=== PATIENT | male | born 1940 | race Caucasian/White ===

== ENCOUNTER 2020-03-27 06:54 | Outpatient (NON) | payer MEDICARE, SELFPAY ==
[2020-03-28 20:04] LABS: SARS-CoV-2 RNA PCR Positive
== END 2020-03-27 06:55 ==
LOC: ANHCOVIDDT 07:07
PROVIDERS: Visit Provider Family Medicine
DX: U07.1 COVID-19 (principal)
CPT/HCPCS: 87635; C9803; U0003

== ENCOUNTER 2021-10-31 10:06 | Inpatient (IN) | payer MEDICARE, SELFPAY ==
[2021-10-31] VITALS (19 sets, daily range): BP systolic 137–145; BP diastolic 59–90; PULSE 73–99; RESP 14–23; TEMP 36.3–37.2; O2SAT 93–98
--- NOTE | ~2021-10-31 | XR_ITS ---
EXAMINATION: XR chest 1V portable DATE: 11/03/2021 05:42 INDICATION: Atelectasis. Preoperative evaluation. Large bowel obstruction. TECHNIQUE: 1. Frontal view of the chest was obtained. 2. AP supine view of the abdomen was obtained for assessment of nasogastric tube positioning. COMPARISON: Chest radiograph dated 11/02/2021 FINDINGS: Chest: Persistent opacities at the lateral right lung base. Minimal streaky atelectasis in the left costophr enic angle. Remainder of lungs are clear. No pulmonary edema, pneumothorax or definitive pleural effu aftab. The cardiomediastinal silhouette is normal. Right upper extremity peripherally inserted central venous catheter (PICC) tip at the caudal superior vena cava. ABDOMEN: Nasogastric tube tip in proximal side port in the body of the stomach. Surgical clips in the left abd omen and multiple surgical clips in the pelvis consistent with prior left nephrectomy and cystectomy with pelvic lymph node dissections. There is an ostomy likely ileal conduit in the right lower quadra nt. Interval decrease in the prior gaseous distention of the ascending and transverse colon which on prior CT appears to result from obstruction at the level of an apple core lesions suspicious for prim ramon colon cancer. IMPRESSION: 1. Persistent bibasilar opacities, right greater than left, which could represent atelectasis or pneu monia. 2. Nasogastric tube in the stomach with decrease in the prior gaseous distention of the proximal colo n. Reviewed, dictated and finalized at location A. IMPRESSION: 1. Persistent bibasilar opacities, right greater than left, which could represe nt atelectasis or pneumonia. 2. Nasogastric tube in the stomach with decrease in the prior gaseous distentio n of the proximal colon.
--- NOTE | ~2021-10-31 | XR_ITS ---
EXAMINATION: XR abdomen/kub 1V DATE: 11/03/2021 05:41 INDICATION: Atelectasis. Preoperative evaluation. Large bowel obstruction. TECHNIQUE: 1. Frontal view of the chest was obtained. 2. AP supine view of the abdomen was obtained for assessment of nasogastric tube positioning. COMPARISON: Chest radiograph dated 11/02/2021 FINDINGS: Chest: Persistent opacities at the lateral right lung base. Minimal streaky atelectasis in the left costophr enic angle. Remainder of lungs are clear. No pulmonary edema, pneumothorax or definitive pleural effu aftab. The cardiomediastinal silhouette is normal. Right upper extremity peripherally inserted central venous catheter (PICC) tip at the caudal superior vena cava. ABDOMEN: Nasogastric tube tip in proximal side port in the body of the stomach. Surgical clips in the left abd omen and multiple surgical clips in the pelvis consistent with prior left nephrectomy and cystectomy with pelvic lymph node dissections. There is an ostomy likely ileal conduit in the right lower quadra nt. Interval decrease in the prior gaseous distention of the ascending and transverse colon which on prior CT appears to result from obstruction at the level of an apple core lesions suspicious for prim ramon colon cancer. IMPRESSION: 1. Persistent bibasilar opacities, right greater than left, which could represent atelectasis or pneu monia. 2. Nasogastric tube in the stomach with decrease in the prior gaseous distention of the proximal colo n. Reviewed, dictated and finalized at location A. IMPRESSION: 1. Persistent bibasilar opacities, right greater than left, which could represe nt atelectasis or pneumonia. 2. Nasogastric tube in the stomach with decrease in the prior gaseous distentio n of the proximal colon.
--- NOTE | ~2021-10-31 | XR_ITS ---
EXAMINATION: XR chest PICC line Exam Date/Time: 11/02/2021 15:30 CDT HISTORY: PICC placement Comparison: None available. RESULT: Lines, tubes, and devices: Right upper extremity PICC, terminating in the SVC. NG tube, terminating out of the [id number]. Lungs and pleura: Right costophrenic angle blunting. Cardiomediastinal silhouette: Unremarkable cardiomediastinal silhouette. Other: No acute osseous or upper abdominal finding. IMPRESSION: Right upper cavity PICC, in good position. Small right pleural effusion. Reviewed, dictated and finalized at location K.
--- NOTE | ~2021-10-31 | XR_ITS ---
EXAMINATION: XR abdomen/kub 1V DATE: 11/04/2021 05:50 INDICATION: Ileus versus small bowel obstruction TECHNIQUE: A supine view of the abdomen on 2 radiographs was obtained. COMPARISON: 11/03/2021 and 10/31/2021 FINDINGS: Nasogastric tube tip in proximal side port in the body of the stomach. Surgical clips in the abdomen and pelvis, more subtle midline sutures and right lower quadrant ostomy consistent with prior left ne phrectomy, cystectomy with pelvic lymph node dissection and right lower quadrant diverting ileal loop ostomy as seen on prior CT. Persistent mild gaseous distention of the cecum and transverse colon pro ximal to the site of a distal transverse colon apple core lesion seen on prior CT which is concerning for malignancy. No dilated loops of gas-filled small bowel. Mild streaky bibasilar atelectasis. Hear t size is normal. IMPRESSION: 1. Persistent mild gaseous distention of the proximal colon likely related to partial obstruction res ulting from apple core lesion seen on prior CT at the distal transverse colon which is suspicious for malignancy. Reviewed, dictated and finalized at location A. IMPRESSION: 1. Persistent mild gaseous distention of the proximal colon likely related to p artial obstruction resulting from apple core lesion seen on prior CT at the dis brenden transverse colon which is suspicious for malignancy.
--- NOTE | ~2021-10-31 | XR_ITS ---
XR abdomen obstructive series DATE: 11/01/2021 08:15 INDICATION: Transverse colon obstruction TECHNIQUE: Portable supine and upright AP views COMPARISON: 10/31/2021 portable upright AP examination 10/31/2021 CT abdomen pelvis FINDINGS: NG tube unchanged in position, distal tip in gastric fundus, the proximal side-port situate d at the diaphragmatic hiatus. Surgical clips overlie the left upper quadrant and left lower quadrant and bilateral pelvis. Radiopaq ue sutures overlie the midabdomen. There is gaseous distention of the transverse colon, terminating in the distal transverse colon area where an apple core lesion is identified on 10/31/2021 CT abdomen pelvis, consistent with obstructing distal transverse colon adenocarcinoma. There is nondilated gas distended containing small bowel segm ents. IMPRESSION: Distal transverse colon obstruction by constricting apple core adenocarcinoma NG tube in gastric fundus with proximal side port at the diaphragmatic hiatus; recommend advancement of the tube. Reviewed, dictated and finalized at Location A. Reviewed, dictated and finalized at location A. IMPRESSION: Distal transverse colon obstruction by constricting apple core matthias ocarcinoma NG tube in gastric fundus with proximal side port at the diaphragmatic hiatus; recommend advancement of the tube.
--- NOTE | ~2021-10-31 | XR_ITS ---
EXAMINATION: XR abdomen NG/feed tube insert DATE: 10/31/2021 14:11 INDICATION: Nasogastric tube placement TECHNIQUE: A supine view of the abdomen and lower chest was obtained for evaluation of feeding tube placement. COMPARISON: CT dated 10/31/2021 FINDINGS: Nasogastric tube tip in proximal side port in the body of the stomach. Excreted contrast is seen with in the right renal collecting system and mid right ureter. Status post left nephrectomy with surgical clips at the left side of the upper lumbar spine. Right paramediastinal anterior abdominal wall sutu res project the right side of the lumbar spine. Gaseous distention of the proximal colon consistent w ith colonic obstruction suspicious for malignancy at the distal transverse colon as described on prio r CT. Atelectasis/scarring at the right costophrenic angle. Cardiomediastinal silhouette is normal. IMPRESSION: 1. Nasogastric tube in stomach. Reviewed, dictated and finalized at location B.
--- NOTE | ~2021-10-31 | XR_ITS ---
XR abdomen obstructive series DATE: 11/02/2021 08:08 INDICATION: Transverse colon obstruction TECHNIQUE: Portable supine and upright AP views on 11/02/2021 at 0 754 and 0755 hours COMPARISON: 11/01/2021 KUB 10/31/2021 CT abdomen pelvis FINDINGS: There is persistent gaseous distention of the right colon proximal to the previously report ed constricting apple core lesion of the distal transverse colon, consistent with persistent obstruct ion. Surgical clips overlie the left upper quadrant, left lower quadrant and bilateral pelvis. The psoas shadows are intact. No visceromegaly is evident. There is an NG tube in proximal stomach. IMPRESSION: No significant change since 11/01/2021 Reviewed, dictated and finalized at Location A. Reviewed, dictated and finalized at location A.
--- NOTE | ~2021-10-31 | CT_ITS ---
EXAMINATION: CT abdomen pelvis w con DATE: 10/31/2021 11:50 INDICATION: Abdominal distention, vomiting TECHNIQUE: Computed tomography (CT) of the abdomen and pelvis was performed with 100 CC Omnipaque 300 intravenous contrast. Automated exposure control and iterative reconstruction technique were employe d. Exam dose: 329.73 mGy-cm total exam DLP. COMPARISON: None. FINDINGS: There is mild atelectasis and/or fibrotic change at the bases of the lower lobes. Normal heart size. No pericardial or pleural effusion. There is minimal perihepatic ascites and minimal fluid in the right paracolic gutter. There is small amount of free fluid in the dependent lower pelvis. There is very prominent fluid distention and air-fluid levels of the cecum, ascending and transverse colon due to a constricting apple core mass of the distal transverse colon. There is decompression of the colon distal to this point, with numerous diverticula of the distal descending and sigmoid colon . No CT evidence of diverticulitis. No hepatic space-occupying mass lesion. Normal splenic size. No pancreatic mass lesion, calcification or ductal dilatation. Mild cholelithiasis. No gallbladder wall thickening or pericholecystic fluid or fat stranding or bile duct dilatation is detected. Normal splenic size. No adrenal mass lesion. No pancreatic mass lesion, calcification or pancreatic duct dilatation. Status post left nephrectomy 8 mm right renal cyst. Indeterminate 5 mm cortical hypoattenuating lesion at the anterior mid right kidney and 4 mm hypoatte nuating lesion of the upper pole of the right kidney, too small to definitively characterize, most li hodan cysts. There is focal scarring along the lower lateral right kidney. 1.5 x 4 mm nonobstructing lower pole renal calculus. Right ileostomy, cystectomy. There is atherosclerotic calcification but normal caliber of the abdominal aorta and iliac arteries. No intraperitoneal or retroperitoneal or pelvic mass lesion or adenopathy or ascites is noted otherwi se. Diffuse idiopathic skeletal hyperostosis of the thoracic spine. Degenerative spurring of the lumbar s pine. No suspicious osteolytic or osteosclerotic lesions. IMPRESSION: Apple core constricting mass of the distal transverse colon consistent with adenocarcino ma, with proximal colon dilatation and fluid levels Status post left nephrectomy Right ileostomy Nonobstructing lower pole right renal calculus Right renal probable cysts Mild scarring, lateral right renal lower pole Cholelithiasis Diverticulosis of the left colon; no CT evidence of diverticulitis Reviewed, dictated and finalized at Location A. Reviewed, dictated and finalized at location A. IMPRESSION: Apple core constricting mass of the distal transverse colon consis tent with adenocarcinoma, with proximal colon dilatation and fluid levels Status post left nephrectomy Right ileostomy Nonobstructing lower pole right renal calculus Right renal probable cysts Mild scarring, lateral right renal lower pole Cholelithiasis Diverticulosis of the left colon; no CT evidence of diverticulitis
--- NOTE | 2021-10-31 10:44 | ED.ABDPAIN ---
HPI - Abdominal Pain General Chief Complaint: Abdominal Pain <VALENTINO Gay Last Filed: 10/31/21 19:36> Stated Complaint: bowel obstruction? <Syeda Staton PA-C - Last Filed: 10/31/21 19:36> Time Seen by Provider: 10/31/21 10:12 <VALENTINO Gay Last Filed: 10/31/21 19:36> Source: patient <VALENTINO Gay Last Filed: 10/31/21 19:36> Mode of arrival: ambulatory <VALENTINO Gay Last Filed: 10/31/21 19:36> Limitations: no limitations <VALENTINO Gay Last Filed: 10/31/21 19:36> History of Present Illness HPI narrative: Patient is a 81-year-old male who presents to the ED with report of abdominal pain and constipation. Patient reports he is typically very regular with his bowel movements, occurring twice a day. He has not had a bowel movement in the last 4 to 5 days however. He reports having diffuse pain across his abdomen that began on Wednesday and has been worsening. He then developed nausea and vomiting yesterday. He states he has been unable to keep down anything more than a few sips of water or nibbles of toast. He saw his primary care doctor today and was referred to the ED for further evaluation and to rule out bowel obstruction. He did try taking Dulcolax twice over the last few days, but denies passing any stool or gas. Reports chills, but denies fever. He has an ileal conduit with urostomy bag s/p radical cystectomy/L nephrectomy and denies any recent issues with this. No blood in vomit. <VALENTINO Gay Last Filed: 10/31/21 19:36> Related Data Home Medications: Home Medications Medication Instructions Recorded Confirmed aspirin 81 mg capsule 81 mg PO DAILY 10/31/21 10/31/21 multivitamin 1 tablet DAILY 10/31/21 10/31/21 <VALENTINO Gay Last Filed: 10/31/21 19:36> Allergies/Adverse Reactions: Allergies Allergy/AdvReac Type Severity Reaction Status Date / Time No Known Allergies Allergy Mild Verified 10/31/21 15:01 <Syeda Staton PA-C - Last Filed: 10/31/21 19:36> Review of Systems Review of Systems: CONSTITUTIONAL: Reports chills. Denies fever or sweats. CARDIOVASCULAR: Denies chest pain. RESPIRATORY: Denies dyspnea. GASTROINTESTINAL: Reports abdominal pain, nausea, vomiting, constipation. Denies rectal bleeding, hematemesis, diarrhea. GENITOURINARY: Denies dysuria or hematuria. MUSCULOSKELETAL: Denies back pain, joint pain, or myalgia. NEUROLOGIC: Denies headache, numbness, tingling, or weakness. <Syeda Staton PA-C - Last Filed: 10/31/21 19:36> All systems reviewed & are unremarkable except as noted in HPI and below <Syeda Staton PA-C - Last Filed: 10/31/21 19:36> [facility] Past Medical History Medical History: Medical History CKD (chronic kidney disease) stage 3, GFR 30-59 ml/min Gastro-esophageal reflux disease without esophagitis Mixed hyperlipidemia <VALENTINO Gay Last Filed: 10/31/21 19:36> Surgical History Surgical History: Surgical History History of nephrectomy History of total cystectomy History of urostomy <Syeda Staton PA-C - Last Filed: 10/31/21 19:36> Family History Family History: Family History Sibling Patient's sister is in good health, Onset Age: 72 Patient's brother is in good health, Onset Age: 63 Father Family history of Alzheimer's disease, Onset Age: 82 Patient's father is Mother Patient's mother is <Syeda Staton PA-C - Last Filed: 10/31/21 19:36> Social History Social History: Social History Smoking status: Former smoker Alcohol intake: current Drinks per week: 7 Substance use: never Substance use type: does not use Spiritual care concerns: No
[2021-10-31 11:07] LABS: Appearance Urine Cloudy (Clear); Bilirubin Urine Negative (Negative); Blood Urine 1+ (Negative); Color Urine Yellow (Yellow); Glucose Urine UA Negative (Negative); Ketones Urine Trace mg/dL (Negative); Leukocyte Esterase Ur 1+ LEU/UL (Negative); Nitrate Urine Positive (Negative); Protein Urine 2+ mg/dL (Negative); Urobilinogen Urine 0.2 mg/dL (<2.0)
[2021-10-31 11:13] LABS: Lactic Acid Reflex 1.3 mmol/L (0.7-2.0)
[2021-10-31] MEDS: SODIUM CHLORIDE 0.9% IV 1,000 ML 999 ML IV CONT (11:17)
[2021-10-31] MEDS: MORPHINE SULFATE (*CRX) 4 MG/ML INJ IV PUSH (11:18)
[2021-10-31] MEDS: ONDANSETRON INJ 4 MG/2 ML VIAL IV PUSH (11:18)
[2021-10-31 11:19] LABS: Basophils Percent Auto 0.4 % (0.2-1.2); Eosinophils Percent Auto 0.5 % (0-4.4); Hematocrit 43.5 % (42.0-52.0); Immature Granulocyte Absolute 0.03 K/mm3 (0.00-0.031); Immature Granulocyte Percent A 0.4 % (0-0.5); Mean Corpuscular HGB Conc 32.2 g/dl (32-36); Mean Corpuscular Hemoglobin 28.6 pg (26-34); Mean Corpuscular Volume 88.8 fl (80-100); Mean Platelet Volume 8.2 fl (7.4-10.4); Monocytes Absolute Auto 0.7 K/mm3 (0.1-0.6); Monocytes Percent Auto 8.7 % (2.6-8.5); Neutrophils Absolute Auto 6.5 K/mm3 (1.3-6.7); Platelet Count Result 249 k/mm3 (150-375); Red Cell Distribution Width 14.3 % (11.5-14.5); White Blood Count 8.3 K/mm3 (4.5-10.0)
[2021-10-31 11:29] LABS: Alanine Aminotransferase 17 U/L (6-50); Albumin Level 4.2 g/dL (3.5-5.1); Alkaline Phosphatase 91 U/L (38-126); Anion Gap 6 mmol/L (8-16); Aspartate Amino Transferase 21 U/L (17-59); Bilirubin,Total 0.3 mg/dL (0.2-1.3); Blood Urea Nitrogen 18 mg/dL (9-20); Calcium 8.8 mg/dL (8.4-10.2); Carbon Dioxide 26 mmol/L (22-30); Chloride 108 mmol/L (98-107); Estimated CRCL calculation 36 ml/min; Estimated Glomerular Filt Rate 49; Glucose 111 mg/dL (65-110); Lipase 152 U/L (23-300); Potassium 3.7 mmol/L (3.4-5.0); Sodium 140 mmol/L (137-145)
[2021-10-31 11:36] LABS: Bacteria Urine Trace /hpf; Mucus Urine Rare /lpf; WBC Clumps Urine Present /HPF; WBC Urine 31-50 /hpf
--- NOTE | 2021-10-31 11:36 | PC.NURSE ---
Patient reports only one kidney. 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 GFR is WNL.
[2021-10-31 11:43] LABS: Add Urine Microscopic? YES
--- NOTE | 2021-10-31 13:34 | PM.IMHP ---
H&P: HPI History of Present Illness Date/Time: 10/31/21 13:12 Chief Complaint: Abdominal Pain, sent from PCP's office. Narrative: This very pleasant 81-year-old male patient significant past medical history of renal and bladder cancer status post ileal conduit urostomy placement in 2002, chronic kidney disease stage 3, hyperlipidemia, GERD, presents to the emergency room this morning with complaints of having his primary care provider sending him over for rule out bowel obstruction. Patient endorses that he normally has regular bowel movements twice daily and he has not had any for the last 4-[address] 30 cues. On Wednesday now 4 days ago, the patient began having some lower abdominal pain and he reports that it has gradually been worsening. Yesterday he started having nausea and vomiting and has been unable to keep anything down except a few bites of dry toast. He saw his primary care physician today regarding the symptoms and there was concern for obstruction so he was subsequently sent here to rule out. In the emergency room workup was performed and vital signs are noted to be stable, CBC is unremarkable, creatinine level is mildly elevated at 1.4 with a GFR 49 but is consistent with patient's history of chronic kidney disease stage 3 in his urine appears cloudy with 2+ protein, 1+ blood, positive nitrates, 1+ leukocyte esterase with 31-[address] of the abdomen and pelvis was performed demonstrating apple-core constricting mass of the distal transverse colon consistent with adenocarcinoma with proximal colon dilation and fluid levels. There are other nonacute findings present on CT such as right ileostomy with status post left nephrectomy, nonobstructing lower pole right renal calculus, right renal probable cyst, mild scarring of the lateral right renal lower pole, cholelithiasis and diverticulosis of the left colon without diverticulitis. Patient does wish to be treated here at this facility and general surgery was contacted by the ER provider, and Dr. Donovan gave order for NG tube to be placed and he will evaluate patient. Patient is being admitted to hospitalist service at this time for further ongoing management of chronic medical conditions and treatment of current urinary tract infection with co-management of general surgery for this new finding of colon mass. At the time of my exam of this patient he is lying supine on the stretcher with no acute distress noted. He denies any chest pain and/or dyspnea. He does complain of some abdominal pain on the left side of his lower abdomen and he is mildly nauseated. He denies any urinary complaints such as burning urgency frequency or hematuria as he does have a right-sided urostomy that is draining clear yellow urine at this time. Review of Systems Review of Systems: All systems reviewed & are unremarkable except as noted in HPI and below PMFSH Past Medical History Medical History CKD (chronic kidney disease) stage 3, GFR 30-59 ml/min Gastro-esophageal reflux disease without esophagitis Mixed hyperlipidemia Surgical History Surgical History History of nephrectomy History of total cystectomy History of urostomy Family History Family History Sibling Patient's sister is in good health, Onset Age: 72 Patient's brother is in good health, Onset Age: 63 Father Family history of Alzheimer's disease, Onset Age: 82 Patient's father is Mother Patient's mother is Social History Social History Smoking status: Former smoker Alcohol intake: current Meds Home Medications and Allergies Home Medications Medication Instructions Recorded Confirmed Type aspirin 81 mg capsule 81
--- NOTE | 2021-10-31 15:08 | ADMGEN ---
This patient, Montrell Castro, was admitted to Medical Room 243-01. Patient/family oriented to hospital policies and general routines including ID bracelet, bed and alarms, visiting hours, pain management, procedures, bathroom and other care routines, personal items, smoking policy, room service/diet, and visiting hours. Information on how to activate the Rapid Response Team has been discussed. Patient/Family are encouraged to report perceived risks to care and to ask questions if they do not understand what they are told or what they should do. Report received from MURPHY Gaspar
[2021-10-31] MEDS: SODIUM CHLORIDE 0.9% IV 1,000 ML 100 ML IV CONT (16:34)
[2021-10-31] MEDS: PANTOPRAZOLE SODIUM IV 40 MG VIAL IV PUSH (16:34)
[2021-10-31] MEDS: HYDROmorphone HCL INJ (*CRX) 1 MG/ML SYR 0.5 MG IV PUSH (16:42)
--- NOTE | 2021-10-31 22:30 | PM.CNGS ---
Assessment and Plan Assessment and plan (1) Mass of colon: Code(s): K63.89 - Other specified diseases of intestine Status: Acute Assessment and Plan: I have personally reviewed the images of his CT scan. I have discussed the situation with him. Ideally if possible patient would have a colonoscopy with a unprepped bowel other than prepping with suppository, fleets enema and soapsuds enemas. If the area of narrowing can be reached biopsies could be taken and perhaps a stent placed across the narrow area. This would then allow a bowel prep later prior to surgical intervention for resection. However, I do not believe we have these capabilities here. Therefore, after discussing with Dr. Alford tomorrow most likely will recommend patient be transferred to a tertiary care center that has the capabilities and a colorectal surgeon who would be comfortable operating in his complex abdomen. Patient states that he has lived here in [facility] some time and prefers not to go back to [facility] for that transfer. [place] be [place] to [place] that is needed. Thank you for asking me to consult on this pleasant patient. (2) History of renal cell cancer: Code(s): Z85.528 - Personal history of other malignant neoplasm of kidney Status: Acute Assessment and Plan: The patient is not sure what type of kidney cancer he had in the left kidney but he did have a radical nephrectomy at [facility] in [facility] in 2000. (3) Obstruction of transverse colon: Code(s): K56.609 - Unspecified intestinal obstruction, unspecified as to partial versus complete obstruction Status: Acute Assessment and Plan: Was likely secondary to tumor. The patient states he did have a colonoscopy about 15 years ago in [place] remembers that the endoscopist apparently took got about 8 polyps but he apparently was not worn to follow-up with a other colonoscopy in 5 years and has not had another colonoscopy since that time. In view of the current obstruction would place an NG tube to prevent further swallowing of air in distension of the cecum. Will repeat abdominal films in the morning to be sure that there was not signs of pending perforation of the cecum. This would require possible laparotomy and more urgent surgery. (4) History of urostomy: Code(s): Z98.890 - Other specified postprocedural states Status: Acute Assessment and Plan: created in 2002 due to need for cystectomy for bladder cancer. (5) History of total cystectomy: Code(s): Z90.6 - Acquired absence of other parts of urinary tract Status: Acute Assessment and Plan: As above (6) History of nephrectomy: Code(s): Z90.5 - Acquired absence of kidney Status: Acute Assessment and Plan: history of radical left nephrectomy from unknown cancer in [facility] [place] 2000. (7) Mixed hyperlipidemia: Code(s): E78.2 - Mixed hyperlipidemia Status: Acute (8) Gastro-esophageal reflux disease without esophagitis: Code(s): K21.9 - Gastro-esophageal reflux disease without esophagitis Status: Acute Assessment and Plan: Agree with use of IV Protonix (9) CKD (chronic kidney disease) stage 3, GFR 30-59 ml/min: Code(s): N18.30 - Chronic kidney disease, stage 3 unspecified Status: Acute Assessment and Plan: agree with IV fluids May consider consider starting peripheral nutrition tomorrow since the patient will be unable to eat for some time. He may benefit from placement of a PICC line if it can be done on the weekend. Additional Plan History of Present Illness Consult details Consult date: 10/31/21 Reason for consult: other (Possible transverse colon obstruction) Requesting physician: Isabel Haskins APN-C Narrative: This a pleasant 81-year-old White m
[2021-11-01] MEDS: SODIUM CHLORIDE 0.9% IV 1,000 ML 100 ML IV CONT ×3 (01:40→23:18)
[2021-11-01] MEDS: HYDROmorphone HCL INJ (*CRX) 1 MG/ML SYR 0.5 MG IV PUSH ×4 (01:44→17:45)
[2021-11-01 05:17] LABS: Basophils Absolute Auto 0.1 K/mm3 (0.0-0.1); Basophils Percent Auto 0.7 % (0.2-1.2); Eosinophils Absolute Auto 0.1 K/mm3 (0-0.3); Eosinophils Percent Auto 1.9 % (0-4.4); Hematocrit 36.7 % (42.0-52.0); Hemoglobin 11.4 g/dL (14.0-18.0); Immature Granulocyte Absolute 0.02 K/mm3 (0.00-0.031); Immature Granulocyte Percent A 0.3 % (0-0.5); Lymphocytes Absolute Auto 1.13 K/mm3 (0.9-3.2); Lymphocytes Percent Auto 16.8 % (18.3-44.2); Mean Corpuscular HGB Conc 31.1 g/dl (32-36); Mean Corpuscular Hemoglobin 28.4 pg (26-34); Mean Corpuscular Volume 91.5 fl (80-100); Mean Platelet Volume 8.8 fl (7.4-10.4); Monocytes Absolute Auto 0.7 K/mm3 (0.1-0.6); Monocytes Percent Auto 9.7 % (2.6-8.5); Neutrophils Absolute Auto 4.7 K/mm3 (1.3-6.7); Neutrophils Percent Auto 70.6 % (45.5-73.1); Platelet Count Result 214 k/mm3 (150-375); Red Blood Count 4.01 M/mm3 (4.6-6.20); Red Cell Distribution Width 14.4 % (11.5-14.5); White Blood Count 6.7 K/mm3 (4.5-10.0)
[2021-11-01 05:39] LABS: Anion Gap 6 mmol/L (8-16); Blood Urea Nitrogen 15 mg/dL (9-20); Calcium 7.8 mg/dL (8.4-10.2); Carbon Dioxide 24 mmol/L (22-30); Chloride 112 mmol/L (98-107); Estimated CRCL calculation 42 ml/min; Estimated Glomerular Filt Rate 58; Glucose 80 mg/dL (65-110); Magnesium 2.1 mg/dL (1.6-2.3); Potassium 3.3 mmol/L (3.4-5.0); Sodium 142 mmol/L (137-145)
[2021-11-01 06:13] VITALS: BP 140/64; PULSE 85; RESP 18; TEMP 36.7; O2SAT 97
[2021-11-01 06:14] VITALS: BMI 24.1
--- NOTE | 2021-11-01 07:37 | PM.IMPN ---
Progress Note: A&P Assessment and Plan (1) Obstruction of transverse colon: Code(s): K56.609 - Unspecified intestinal obstruction, unspecified as to partial versus complete obstruction Status: Acute Assessment and Plan: - Bowel obstruction present as demonstrated per CT scan of the abdomen and pelvis, secondary to mass identified and transverse colon. - Concern for adenocarcinoma given patient's previous history of renal cancer. - patient never underwent chemotherapy and/or radiation for previous cancer. Instead he opted for radical cystectomy and nephrectomy with ileal conduit and urostomy placement. - General surgery, Dr. Donovan is consulted. Appreciate his co-management and recommendations with this patient. - NG tube placed as per instructions of Dr. Donovan. - P.r.n. antiemetics and pain medication are available IV push for patient as needed. - NPO status 11/01: Plan is to transfer to higher level of care for possible bowel stenting (2) Mass of colon: Code(s): K63.89 - Other specified diseases of intestine Status: Acute Assessment and Plan: - See plan above, concern for adenocarcinoma. It is causing acute obstruction, General surgery to assist with management patient. (3) Urinary tract infection: Qualifiers: Hematuria presence: with hematuria Urinary tract infection type: acute cystitis Qualified Code(s): N30.01 - Acute cystitis with hematuria Code(s): N39.0 - Urinary tract infection, site not specified Status: Acute Assessment and Plan: - Follow urine culture to completion. - Patient received Rocephin in the emergency room and we will continue that daily on the floor pending urine culture. - Follow labs and vital signs. (4) CKD (chronic kidney disease) stage 3, GFR 30-59 ml/min: Code(s): N18.30 - Chronic kidney disease, stage 3 unspecified Status: Acute Assessment and Plan: - Baseline chronic kidney disease stage 3. No comparison renal function data present in our EMR. - Gentle hydration as patient will be NPO. Continue normal saline at 100 mL/hour. (5) Gastro-esophageal reflux disease without esophagitis: Code(s): K21.9 - Gastro-esophageal reflux disease without esophagitis Status: Acute Assessment and Plan: - PPI therapy with Protonix 40 mg IV push b.i.d. is ordered. (6) Mixed hyperlipidemia: Code(s): E78.2 - Mixed hyperlipidemia Status: Acute Assessment and Plan: - Hold current medications secondary to NPO status. (7) History of renal cell cancer: Code(s): Z85.528 - Personal history of other malignant neoplasm of kidney Status: Acute Assessment and Plan: - from 2002, left kidney and bladder cancer status post radical nephrectomy and cystectomy. He has an ileal conduit and urostomy placement in the right lower quadrant. Subjective Date/time seen: 11/01/21 07:37 Interval history: Patient resting comfortably. Does admit to still feeling distended. No bowel movements, not passing gas. No fevers or chills. No abdominal pain. No nausea or emesis and NG tube placement. Review of Systems Review of Systems: 12 point review of systems was assessed and was negative except as noted in the HPI All systems reviewed & are unremarkable except as noted in HPI and below Exam Narrative: General: No acute distress, alert and oriented per baseline, NG tube in place HEENT: Atraumatic, normocephalic, mucous membranes moist CV: Regular rate and rhythm, S1, S2 Lungs: Clear to auscultation bilaterally, no rales or crackles noted, no wheezes, good air entry Abdomen: Distended, tympanic bowel sounds throughout, tenderness to palpation noted especially in the epigastric area Extremities: Normal to inspection Skin: No rashes noted, no lesions or wounds seen Psych: Euthymic, normal affect Objective Data Vital Signs Vital Signs: Vital Signs -
--- NOTE | 2021-11-01 08:08 | WPDGICN ---
Assessment and Plan Assessment and plan (1) Obstruction of transverse colon: Code(s): K56.609 - Unspecified intestinal obstruction, unspecified as to partial versus complete obstruction Status: Acute Assessment and Plan: Patient has clinical bowel obstruction he is in ileus with absent bowel sounds tense distended tympanic. I have been asked to consider colonoscopy but this patient will be unable to be prepped. He appears to have an ileus which is a contraindication as well. I do not personally do bowel stenting. I would recommend surgical decompression or transferred tertiary care center if surgeons feel appropriate. (2) Mass of colon: Code(s): K63.89 - Other specified diseases of intestine Status: Acute Assessment and Plan: Mass of colon on CT scanning most suspicious for colon carcinoma. Less likely would be adhesions from previous surgery or extension of previous renal cell carcinoma. This likely will be further defined at time of definitive surgery. (3) History of renal cell cancer: Code(s): Z85.528 - Personal history of other malignant neoplasm of kidney Status: Acute (4) History of urostomy: Code(s): Z98.890 - Other specified postprocedural states Status: Acute (5) Urinary tract infection: Qualifiers: Hematuria presence: with hematuria Urinary tract infection type: acute cystitis Qualified Code(s): N30.01 - Acute cystitis with hematuria Code(s): N39.0 - Urinary tract infection, site not specified Status: Acute GI Consult Note Consult date/time: 11/01/21 08:08 Reason for consult: Bowel obstruction HPI: Montrell Castro is a 81 year old male I am asked to see because of bowel obstruction. Patient reports he began to get abdominal pain cramping on Wednesday fiber 6 days prior to this. It intensified prompting him to present to the hospital last evening and was subsequently admitted. A CT scan reveals a mass in the transverse colon. In apparent bowel obstruction. Patient's past history is significant for nephrectomy for renal cell carcinoma 15 years ago. He has a diverting nephrostomy on the right side. Patient complains of diffuse abdominal pain and NG tube was placed last night. Review of Systems Review of Systems: Review of systems noncontributory. [facility] Past Medical History Medical History CKD (chronic kidney disease) stage 3, GFR 30-59 ml/min Gastro-esophageal reflux disease without esophagitis Mixed hyperlipidemia Surgical History Surgical History History of nephrectomy History of total cystectomy History of urostomy Family History Family History Sibling Patient's sister is in good health, Onset Age: 72 Patient's brother is in good health, Onset Age: 63 Father Family history of Alzheimer's disease, Onset Age: 82 Patient's father is Mother Patient's mother is Social History Social History Smoking status: Former smoker Alcohol intake: current Drinks per week: 7 Substance use: never Substance use type: does not use Spiritual care concerns: No Meds Home Medications and Allergies Home Medications Medication Instructions Recorded Confirmed Type aspirin 81 mg capsule 81 mg PO DAILY 10/31/21 10/31/21 History multivitamin 1 tablet DAILY 10/31/21 10/31/21 History Allergies Allergy/AdvReac Type Severity Reaction Status Date / Time No Known Allergies Allergy Mild Verified 10/31/21 15:01 Vital Signs Vital Signs - 24 hr 10/31/21 10:08 10/31/21 10:57 10/31/21 11:01 Temperature 97.3 F L Pulse Rate 73 95 95 Respiratory Rate 14 16 19 Blood Pressure 143/65 H 143/81 H Pulse Oximetry 98 97 95 Oxygen Delivery Ro
[2021-11-01] MEDS: PANTOPRAZOLE SODIUM IV 40 MG VIAL IV PUSH ×2 (08:19→17:45)
--- NOTE | 2021-11-01 10:06 | PM.PNGS ---
Progress Note: A&P Assessment and Plan (1) Mass of colon: Code(s): K63.89 - Other specified diseases of intestine Status: Acute Assessment and Plan: I have personally reviewed the images of his CT scan.? I have discussed the situation with him.? Ideally if possible patient would have a colonoscopy with a unprepped bowel other than prepping with suppository, fleets enema and soapsuds enemas.? If the area of narrowing can be reached biopsies could be taken and perhaps a stent placed across the narrow area.? This would then allow a bowel prep later prior to surgical intervention for resection.? However, I do not believe we have these capabilities here.? Therefore, after discussing with Dr. Smyth today we recommend patient be transferred to a tertiary care center that has these capabilities and a colorectal surgeon who would be comfortable operating in his complex abdomen. ? ? Patient states that he has lived here in [place], [place] some time and prefers not to go back to [facility] for that transfer.? May be willing to transfer across the [place] to [place] if that is needed. Thank you for asking me to consult on this pleasant patient. (2) History of renal cell cancer: (2) Obstruction of transverse colon: Code(s): K56.609 - Unspecified intestinal obstruction, unspecified as to partial versus complete obstruction Status: Acute Assessment and Plan: This could be inflammatory but more likely is a neoplasm in nature. If it could be stented we may save the patient an ostomy. Will start cleansing the lower bowel with the suppository and or Fleets today. (3) History of renal cell cancer: Code(s): Z85.528 - Personal history of other malignant neoplasm of kidney Status: Acute Subjective Subjective Date/Time Seen: 11/01/21 09:06 Patient reports: no new complaints, still having pain ( Less than when presented to the ED, but took recent pain medicine), pain is less and other ( denies noticing flatus. No bowel movement.) Review of Systems Review of Systems: All systems reviewed & are unremarkable except as noted in HPI and below Constitutional: Constitutional: Reports as per HPI, Denies chills and Denies fever(s) Cardiovascular: Cardiovascular: Denies chest pain and Denies dyspnea Respiratory: Respiratory: Reports no additional respiratory complaints and Denies dyspnea Gastrointestinal: Gastrointestinal: Reports as per HPI and Denies bloating Musculoskeletal: Musculoskeletal: Reports no additional musculoskeletal complaints Neurologic: Denies memory loss Psychiatric: Psychiatric: Denies anxiety and Denies memory loss Exam Const: General: cooperative, comfortable, alert and awake Orientation/consciousness: patient oriented x3 HENMT: Head: normal to inspection Mouth: Yes moist mucous membranes Eyes: Sclera: sclerae normal Pupils: Equal, round and reactive pupils present Neck: Neck: normal visual inspection and no JVD Chest: Chest palpation & inspection: normal inspection of the chest Resp: Effort & Inspection: normal respiratory effort Auscultation: clear to auscultation bilaterally Cardio: Jugular venous distension: no JVD Rate: regular rate GI: Inspection: distended and scar ( Described yesterday on consult no in line and remaining right) GI Palp: Yes Soft to palpation ( lower abdomen), Yes Firmness to palpation present (GI) ( upper abdomen no peritoneal signs), No Guarding due to palpation present (GI) and No Hernia present Other: ostomy pink in the right lower quadrant not much room for an ostomy between it and the ribcage superiorly on the right Neuro: General: patient oriented x3 Cranial nerves: Yes Equal, round and reactive pupils present Objective Data Vital Signs Vital Signs: Vital Signs - 24 hr 10/31/21 10:08 10/31/21 10:57 10/31/21 11:01 Temperature 36.3 C L Pulse Rate 73 95 95 Respiratory Rate 14 16 19 Blood Pressure 143/65 H 143/8
--- NOTE | 2021-11-01 11:25 | PM.IMPN ---
Progress Note: A&P Assessment and Plan (1) Obstruction of transverse colon: Code(s): K56.609 - Unspecified intestinal obstruction, unspecified as to partial versus complete obstruction Status: Acute Assessment and Plan: - Bowel obstruction present as demonstrated per CT scan of the abdomen and pelvis, secondary to mass identified and transverse colon. - Concern for adenocarcinoma given patient's previous history of renal cancer. - patient never underwent chemotherapy and/or radiation for previous cancer. Instead he opted for radical cystectomy and nephrectomy with ileal conduit and urostomy placement. - General surgery, Dr. Donovan is consulted. Appreciate his co-management and recommendations with this patient. - NG tube placed as per instructions of Dr. Donovan. - P.r.n. antiemetics and pain medication are available IV push for patient as needed. - NPO status 11/01: Plan is to transfer to higher level of care for possible bowel stenting, accepted at [facility] by the surgeon Dr. Barreto, currently on a waiting list for a bed (2) Mass of colon: Code(s): K63.89 - Other specified diseases of intestine Status: Acute Assessment and Plan: - See plan above, concern for adenocarcinoma. It is causing acute obstruction, General surgery to assist with management patient. (3) Urinary tract infection: Qualifiers: Hematuria presence: with hematuria Urinary tract infection type: acute cystitis Qualified Code(s): N30.01 - Acute cystitis with hematuria Code(s): N39.0 - Urinary tract infection, site not specified Status: Acute Assessment and Plan: - Follow urine culture to completion. - Patient received Rocephin in the emergency room and we will continue that daily on the floor pending urine culture. - Follow labs and vital signs. (4) CKD (chronic kidney disease) stage 3, GFR 30-59 ml/min: Code(s): N18.30 - Chronic kidney disease, stage 3 unspecified Status: Acute Assessment and Plan: - Baseline chronic kidney disease stage 3. No comparison renal function data present in our EMR. - Gentle hydration as patient will be NPO. Continue normal saline at 100 mL/hour. (5) Gastro-esophageal reflux disease without esophagitis: Code(s): K21.9 - Gastro-esophageal reflux disease without esophagitis Status: Acute Assessment and Plan: - PPI therapy with Protonix 40 mg IV push b.i.d. is ordered. (6) Mixed hyperlipidemia: Code(s): E78.2 - Mixed hyperlipidemia Status: Acute Assessment and Plan: - Hold current medications secondary to NPO status. (7) History of renal cell cancer: Code(s): Z85.528 - Personal history of other malignant neoplasm of kidney Status: Acute Assessment and Plan: - from 2002, left kidney and bladder cancer status post radical nephrectomy and cystectomy. He has an ileal conduit and urostomy placement in the right lower quadrant. Subjective Date/time seen: 11/01/21 11:25 Interval history: Continued tenderness in his abdomen. No bowel movement or passing gas. Overnight events noted. No chest pain or shortness of breath. No nausea, vomiting or diarrhea. No fevers or chills. Review of Systems Review of Systems: All systems reviewed & are unremarkable except as noted in HPI and below Exam Narrative: General: No acute distress, alert and oriented per baseline, NG tube in place HEENT: Atraumatic, normocephalic, mucous membranes moist CV: Regular rate and rhythm, S1, S2 Lungs: Clear to auscultation bilaterally, no rales or crackles noted, no wheezes, good air entry Abdomen: Distended, tympanic bowel sounds throughout, tenderness to palpation noted especially in the epigastric area Extremities: Normal to inspection Skin: No rashes noted, no lesions or wounds seen Psych: Euthymic, normal affect Objective Data Vital Signs Vital Signs:
[2021-11-01] MEDS: BISACODYL 10 MG SUPPOSITORY RECTAL ×2 (11:45→17:45)
[2021-11-01 15:38] VITALS: BP 155/68; PULSE 91; RESP 16; TEMP 36.8; O2SAT 98
[2021-11-01 21:09] VITALS: BP 101/87; PULSE 94; RESP 18; TEMP 36.3; O2SAT 96
[2021-11-02 05:15] LABS: Basophils Percent Auto 0.5 % (0.2-1.2); Eosinophils Absolute Auto 0.1 K/mm3 (0-0.3); Eosinophils Percent Auto 1.9 % (0-4.4); Hematocrit 35.2 % (42.0-52.0); Immature Granulocyte Absolute 0.01 K/mm3 (0.00-0.031); Immature Granulocyte Percent A 0.2 % (0-0.5); Lymphocytes Absolute Auto 0.69 K/mm3 (0.9-3.2); Lymphocytes Percent Auto 11.9 % (18.3-44.2); Mean Corpuscular HGB Conc 31.3 g/dl (32-36); Mean Corpuscular Hemoglobin 28.4 pg (26-34); Mean Platelet Volume 8.6 fl (7.4-10.4); Monocytes Absolute Auto 0.6 K/mm3 (0.1-0.6); Monocytes Percent Auto 10.2 % (2.6-8.5); Neutrophils Absolute Auto 4.4 K/mm3 (1.3-6.7); Neutrophils Percent Auto 75.3 % (45.5-73.1); Platelet Count Result 180 k/mm3 (150-375); Red Blood Count 3.87 M/mm3 (4.6-6.20); Red Cell Distribution Width 14.4 % (11.5-14.5); White Blood Count 5.8 K/mm3 (4.5-10.0)
[2021-11-02 05:23] LABS: Anion Gap 7 mmol/L (8-16); Blood Urea Nitrogen 14 mg/dL (9-20); Calcium 7.8 mg/dL (8.4-10.2); Carbon Dioxide 21 mmol/L (22-30); Chloride 115 mmol/L (98-107); Estimated CRCL calculation 45 ml/min; Estimated Glomerular Filt Rate > 60; Glucose 81 mg/dL (65-110); Potassium 3.3 mmol/L (3.4-5.0); Sodium 143 mmol/L (137-145)
[2021-11-02 05:43] LABS: Prealbumin 13.5 mg/dL (17.6-36.0)
[2021-11-02 06:00] VITALS: BP 146/73; PULSE 92; RESP 20; TEMP 36.4; O2SAT 99
--- NOTE | 2021-11-02 07:40 | PM.IMPN ---
Progress Note: A&P Assessment and Plan (1) Obstruction of transverse colon: Code(s): K56.609 - Unspecified intestinal obstruction, unspecified as to partial versus complete obstruction Status: Acute Assessment and Plan: Bowel obstruction present as demonstrated per CT scan of the abdomen and pelvis, secondary to mass identified and transverse colon. Concern for adenocarcinoma given patient's previous history of renal cancer. Patient never underwent chemotherapy and/or radiation for previous cancer. Instead he opted for radical cystectomy and nephrectomy with ileal conduit and urostomy placement. General surgery, Dr. Donovan is consulted. Appreciate his co-management and recommendations with this patient. NG tube placed as per instructions of Dr. Donovan. P.r.n. antiemetics and pain medication are available IV push for patient as needed. NPO status 11/01: Plan is to transfer to higher level of care for possible bowel stenting, accepted at [facility] by the surgeon Dr. Barreto, currently on a waiting list for a bed 11/02: Pending transfer, otherwise no change (2) Mass of colon: Code(s): K63.89 - Other specified diseases of intestine Status: Acute Assessment and Plan: See plan above, concern for adenocarcinoma. It is causing acute obstruction, General surgery to assist with management patient. (3) Urinary tract infection: Qualifiers: Hematuria presence: with hematuria Urinary tract infection type: acute cystitis Qualified Code(s): N30.01 - Acute cystitis with hematuria Code(s): N39.0 - Urinary tract infection, site not specified Status: Acute Assessment and Plan: Abnormal urinalysis from urostomy, urine culture growing Gram-negative bacilli, final results pending, no previous cultures available, continue Rocephin 1 g daily, started on October 31, 2021, end date November 06, 202111/02: Urine culture grew Enterobacter, Klebsiella aerogenes, sensitive to ceftriaxone, continue current management (4) CKD (chronic kidney disease) stage 3, GFR 30-59 ml/min: Code(s): N18.30 - Chronic kidney disease, stage 3 unspecified Status: Acute Assessment and Plan: Baseline chronic kidney disease stage 3. No comparison renal function data present in our EMR. Gentle hydration as patient will be NPO. Continue normal saline at 100 mL/hour. (5) Gastro-esophageal reflux disease without esophagitis: Code(s): K21.9 - Gastro-esophageal reflux disease without esophagitis Status: Acute Assessment and Plan: PPI therapy with Protonix 40 mg IV push b.i.d. is ordered. (6) Mixed hyperlipidemia: Code(s): E78.2 - Mixed hyperlipidemia Status: Acute Assessment and Plan: Hold current medications secondary to NPO status. (7) History of renal cell cancer: Code(s): Z85.528 - Personal history of other malignant neoplasm of kidney Status: Acute Assessment and Plan: From 2002, left kidney and bladder cancer status post radical nephrectomy and cystectomy. He has an ileal conduit and urostomy placement in the right lower quadrant. (8) Hypokalemia: Code(s): E87.6 - Hypokalemia Status: Acute Assessment and Plan: 11/02: Potassium is 3.3 today, will give 40 mEq IVPB with lidocaine x1, recheck tomorrow Plan Plan for PICC line ad TPN per surgery team, spoke with Dr Barreto, accepting acute care surgeon at [facility], bed still pending. Subjective Date/time seen: 11/02/21 07:40 Interval history: Patient is somewhat restless, wandering the room. No overnight events noted. No chest pain or shortness of breath. No nausea, vomiting or diarrhea. No fevers or chills. It seems like his belly pain might be somewhat improved from yesterday. He is having small bowel movements. States he did pass some flatus. Review of Systems Review of Systems: 12 point review of systems was assessed and was negative except as noted in
--- NOTE | 2021-11-02 08:42 | WPDGIPROGNO ---
Progress Note: A&P Assessment and Plan (1) Obstruction of transverse colon: Code(s): K56.609 - Unspecified intestinal obstruction, unspecified as to partial versus complete obstruction Status: Acute Assessment and Plan: Patient with large bowel obstruction. CT scan imaging suggest mass in the transverse colon. Today bowel sounds are heard. Patient's white count remains normal. He has modest discomfort throughout his abdomen. Colonic stenting not available at our institution. Would recommend decompression. Surgery feels this would best be done at a tertiary care center. transfer is in progress. (2) Mass of colon: Code(s): K63.89 - Other specified diseases of intestine Status: Acute (3) History of renal cell cancer: Code(s): Z85.528 - Personal history of other malignant neoplasm of kidney Status: Acute Assessment and Plan: Patient has a ileal ostomy tube in place. history nephrectomy. Subjective Date/time seen: 11/02/21 08:42 patient seen today in follow-up. Alert tolerating NG tube at bedside. May passed a small amount of flatus. Review of Systems Review of Systems: Review of systems noncontributory. Exam Narrative: Physical exam reveals patient be alert. Vital signs stable. HEENT exam is unremarkable patient anicteric. Lungs are clear. Heart without murmur. Abdomen is protuberant. Bowel sounds are present and heard today. Abdomen is tympanic diffusely. Objective Data Vital Signs Vital Signs: Vital Signs - 24 hr 11/01/21 15:38 11/01/21 21:09 11/02/21 06:00 Temperature 98.2 F 97.3 F L 97.6 F Pulse Rate 91 94 92 Respiratory Rate 16 18 20 Blood Pressure 155/68 H 101/87 146/73 H Pulse Oximetry 98 96 99 Intake/Output Intake/Output: Intake & Output 10/30/21 10/31/21 11/01/21 11/02/21 23:59 23:59 23:59 23:59 Intake Total 1050 3000 Output Total 450 1410 850 Balance 600 1590 -850 Meds/Results Medications: Active Medications Generic Name Dose Route Start Last Admin Trade Name Freq PRN Reason Stop Dose Admin Hydromorphone HCl 0.5 mg 10/31/21 13:54 11/01/21 17:45 Hydromorphone Hcl Inj (*Crx) 1 Mg/Ml Syr IV PUSH 0.5 mg Q4HR PRN Administration pain Sodium Chloride 1,000 mls @ 100 mls/hr 10/31/21 13:55 11/01/21 23:18 Normal Saline Iv IV CONT 100 mls/hr .Q10H FAISAL Administration Ceftriaxone Sodium/Dextrose 1 gm in 50 mls @ 100 mls/hr 11/02/21 18:00 Rocephin 1 Gm/D5w 50 Ml IVPB Q24H FAISAL Potassium Chloride 40 meq/ 520 mls @ 130 mls/hr 11/02/21 08:15 Sodium Chloride IVPB 11/02/21 12:14 ONCE ONE Ondansetron HCl 4 mg 10/31/21 12:52 Ondansetron Inj 4 Mg/2 Ml Vial IV PUSH Q4H PRN Nausea Pantoprazole Sodium 40 mg 10/31/21 17:00 11/01/21 17:45 Pantoprazole Sodium Iv 40 Mg Vial IV PUSH 40 mg BID FAISAL Administration Radiology Results: ITS Impressions Abdomen/Pelvis CT 10/31/21 11:51 IMPRESSION: Apple core constricting mass of the distal transverse colon consistent with adenocarcinoma, with proximal colon dilatation and fluid levels Status post left nephrectomy Right ileostomy Nonobstructing lower pole right renal calculus Right renal probable cysts Mild scarring, lateral right renal lower pole Cholelithiasis Diverticulosis of the left colon; no CT evidence of diverticulitis ADDENDUM: 10/31/21 1235 Correction: The patient has an ileal conduit and urostomy. Abdomen X-Ray 11/02/21 08:25 IMPRESSION: No significant change since 11/01/2021 Labs Labs: Laboratory Results - last 24 hr 11/02/21 11/02/21 04:54 04:54 WBC 5.8 RBC 3.87 L Hgb 11.0 L Hct 35.2 L MCV 91.0 MCH 28.4 MCHC 31.3 L RDW 14.4 Plt Count 180 MPV 8.6 Immature Gran % (Auto) 0.2 Neut % (Auto) 75.3 H Lymph % (Auto) 11.9 L [place] % (Auto) 10.2 H Eos % (Auto) 1.9 Baso % (Auto) 0.5 Lymph # (Auto) 0.69 L [place] # (Aut
[2021-11-02] MEDS: BISACODYL 10 MG SUPPOSITORY RECTAL (09:13)
[2021-11-02] MEDS: POTASSIUM CHLORIDE INJ 40 MEQ in SODIUM CHLORIDE 0.9% IV 500 ML 130 MEQ IVPB (09:13)
[2021-11-02] MEDS: PANTOPRAZOLE SODIUM IV 40 MG VIAL IV PUSH ×2 (09:13→18:03)
[2021-11-02] MEDS: SODIUM CHLORIDE 0.9% IV 1,000 ML 100 ML IV CONT ×2 (09:16→23:49)
[2021-11-02 14:51] VITALS: BP 157/69; PULSE 85; RESP 18; TEMP 36.3; O2SAT 98
--- NOTE | 2021-11-02 16:38 | PM.PNGS ---
Progress Note: A&P Assessment and Plan (1) Mass of colon: Code(s): K63.89 - Other specified diseases of intestine Status: Acute Assessment and Plan: I have personally reviewed the images of his CT scan.? I have discussed the situation with him.? Ideally if possible patient would have a colonoscopy with a unprepped bowel other than prepping with suppository, fleets enema and soapsuds enemas.? If the area of narrowing can be reached biopsies could be taken and perhaps a stent placed across the narrow area.? This would then allow a bowel prep later prior to surgical intervention for resection.? However, I do not believe we have these capabilities here.? Therefore, after discussing it with Dr. Smyth yesterday, we recommend patient be transferred to a tertiary care center that has these capabilities and a colorectal surgeon who would be comfortable operating in his complex abdomen. ? ? Patient states that he has lived here in [place], [place] for some time now and prefers not to go back to [place], [place] for that transfer.? [place] be [place] to [place] if that is needed. Thank you for asking me to consult on this pleasant patient. (2) History of renal cell cancer: (2) Obstruction of transverse colon: Code(s): K56.609 - Unspecified intestinal obstruction, unspecified as to partial versus complete obstruction Status: Acute Assessment and Plan: This could be inflammatory but more likely is a neoplasm in nature. Will check CEA level in AM. If it could be stented we may save the patient an ostomy. Will continue cleansing the lower bowel with the suppository and or Fleets today. since he needs to be NPO with stomach decompressed to prevent air continuing to go into the small bowel will place PICC line in begin TPN today. will check a CEA level with blood work in the morning as this may help by making is more concerned about cancer if it is elevated. (3) History of renal cell cancer: Code(s): Z85.528 - Personal history of other malignant neoplasm of kidney Status: Acute (4) History of nephrectomy: Code(s): Z90.5 - Acquired absence of kidney Status: Acute Assessment and Plan: This is the left. Will make surgery did more difficult because he probably has significant adhesions where the colon fell back into the retroperitoneum area. (5) Mixed hyperlipidemia: Code(s): E78.2 - Mixed hyperlipidemia Status: Acute Assessment and Plan: As per hospitalist Subjective Subjective Date/Time Seen: 11/02/21 10:38 Patient reports: no new complaints, feels better, flatus and bowel movement ( after suppository and fleets enema) Interval history: Patient realizes we're still waiting on a bed at [facility]. I let him know that [facility] is completely full and not accepting transfers at this time, even though we have called them and asked to consider having him seen by a colorectal surgeon there. Review of Systems Review of Systems: All systems reviewed & are unremarkable except as noted in HPI and below Constitutional: Constitutional: Reports as per HPI, Denies chills and Denies fever(s) Cardiovascular: Cardiovascular: Denies chest pain and Denies dyspnea Respiratory: Respiratory: Reports no additional respiratory complaints and Denies dyspnea Gastrointestinal: Gastrointestinal: Reports as per HPI, Reports bloating ( Mild), Denies GI cramping and Denies vomiting ( NG seems to be working okay) Musculoskeletal: Musculoskeletal: Reports no additional musculoskeletal complaints Neurologic: Denies memory loss Psychiatric: Psychiatric: Denies anxiety and Denies memory loss Exam Const: General: cooperative, comfortable, alert and awake Orientation/consciousness: patient oriented x3 HENMT: Head: normal to inspection Mouth: Yes moist mucous membranes Eyes: Sclera: sclerae normal Pupils: Equal, round and reactive pupils p
[2021-11-02 17:17] LABS: Basophils Percent Auto 0.4 % (0.2-1.2); Eosinophils Absolute Auto 0.1 K/mm3 (0-0.3); Eosinophils Percent Auto 1.7 % (0-4.4); Hematocrit 33.7 % (42.0-52.0); Hemoglobin 10.6 g/dL (14.0-18.0); Immature Granulocyte Absolute 0.02 K/mm3 (0.00-0.031); Immature Granulocyte Percent A 0.3 % (0-0.5); Lymphocytes Absolute Auto 0.92 K/mm3 (0.9-3.2); Lymphocytes Percent Auto 13.3 % (18.3-44.2); Mean Corpuscular HGB Conc 31.5 g/dl (32-36); Mean Corpuscular Hemoglobin 28.7 pg (26-34); Mean Corpuscular Volume 91.3 fl (80-100); Mean Platelet Volume 8.7 fl (7.4-10.4); Monocytes Absolute Auto 0.6 K/mm3 (0.1-0.6); Neutrophils Absolute Auto 5.2 K/mm3 (1.3-6.7); Neutrophils Percent Auto 75.3 % (45.5-73.1); Platelet Count Result 210 k/mm3 (150-375); Red Blood Count 3.69 M/mm3 (4.6-6.20); Red Cell Distribution Width 14.4 % (11.5-14.5); White Blood Count 6.9 K/mm3 (4.5-10.0)
[2021-11-02 17:26] LABS: Alanine Aminotransferase 12 U/L (6-50); Alkaline Phosphatase 65 U/L (38-126); Anion Gap 8 mmol/L (8-16); Aspartate Amino Transferase 24 U/L (17-59); Bilirubin,Total 0.3 mg/dL (0.2-1.3); Blood Urea Nitrogen 15 mg/dL (9-20); Calcium 8.1 mg/dL (8.4-10.2); Carbon Dioxide 16 mmol/L (22-30); Chloride 119 mmol/L (98-107); Estimated CRCL calculation 49 ml/min; Estimated Glomerular Filt Rate > 60; Glucose 73 mg/dL (65-110); Potassium 3.7 mmol/L (3.4-5.0); Sodium 143 mmol/L (137-145)
[2021-11-02 17:29] LABS: Partial Thromboplastin Time 24.2 SECONDS (22.3-36.8)
[2021-11-02 17:33] LABS: Transferrin 195 mg/dL (206-381)
[2021-11-02] MEDS: FAT EMULSIONS IV 20% 250 ML 20.83 ML IVPB (18:01)
[2021-11-02 18:02] LABS: Glucose Point of Care 81 mg/dl (65-105)
[2021-11-02] MEDS: AMINO ACIDS 5%/D15W/E-LYTES/CA 2,000 ML with MULTIVITAMINS-12 INJ VIAL 1 2.5 ML, MULTIV... 40 ML IV CONT (18:02)
[2021-11-02] MEDS: CENTRAL LINE FLUSH 10 ML IV PUSH ×2 (18:03→20:48)
[2021-11-02 20:46] VITALS: BP 173/74; PULSE 83; RESP 20; TEMP 36.4; O2SAT 98
[2021-11-02] MEDS: PHENOL/SOD PHENO SPRAY CHERRY (*BKC) 1 SPRAY MUCOUS MEM (21:55)
[2021-11-02 23:55] LABS: Glucose Point of Care 108 mg/dl (65-105)
[2021-11-03] MEDS: CENTRAL LINE FLUSH 10 ML IV PUSH ×4 (05:05→21:36)
[2021-11-03] MEDS: CENTRAL LINE FLUSH 20 ML IV PUSH (05:05)
[2021-11-03 05:20] LABS: Glucose Point of Care 121 mg/dl (65-105)
[2021-11-03 05:23] LABS: Basophils Percent Auto 0.6 % (0.2-1.2); Eosinophils Absolute Auto 0.2 K/mm3 (0-0.3); Eosinophils Percent Auto 2.9 % (0-4.4); Hematocrit 32.7 % (42.0-52.0); Hemoglobin 10.3 g/dL (14.0-18.0); Immature Granulocyte Absolute 0.02 K/mm3 (0.00-0.031); Immature Granulocyte Percent A 0.3 % (0-0.5); Lymphocytes Percent Auto 15.2 % (18.3-44.2); Mean Corpuscular HGB Conc 31.5 g/dl (32-36); Mean Corpuscular Hemoglobin 28.5 pg (26-34); Mean Corpuscular Volume 90.3 fl (80-100); Mean Platelet Volume 8.7 fl (7.4-10.4); Monocytes Absolute Auto 0.7 K/mm3 (0.1-0.6); Monocytes Percent Auto 9.5 % (2.6-8.5); Neutrophils Absolute Auto 5.2 K/mm3 (1.3-6.7); Neutrophils Percent Auto 71.5 % (45.5-73.1); Platelet Count Result 204 k/mm3 (150-375); Red Blood Count 3.62 M/mm3 (4.6-6.20); Red Cell Distribution Width 14.3 % (11.5-14.5); White Blood Count 7.2 K/mm3 (4.5-10.0)
[2021-11-03 05:33] LABS: INR 1.3; Prothrombin Time 15.7 Seconds (11.1-14.7)
[2021-11-03 05:34] LABS: Alanine Aminotransferase 12 U/L (6-50); Albumin Level 2.8 g/dL (3.5-5.1); Alkaline Phosphatase 61 U/L (38-126); Anion Gap 4 mmol/L (8-16); Aspartate Amino Transferase 21 U/L (17-59); Bilirubin,Total < 0.1 mg/dL (0.2-1.3); Blood Urea Nitrogen 14 mg/dL (9-20); Calcium 7.7 mg/dL (8.4-10.2); Carbon Dioxide 21 mmol/L (22-30); Chloride 117 mmol/L (98-107); Estimated CRCL calculation 49 ml/min; Estimated Glomerular Filt Rate > 60; Glucose 119 mg/dL (65-110); Phosphorus 2.3 mg/dL (2.5-4.5); Potassium 3.2 mmol/L (3.4-5.0); Sodium 142 mmol/L (137-145)
[2021-11-03 05:41] LABS: Transferrin 174 mg/dL (206-381)
[2021-11-03 06:00] VITALS: BP 152/73; PULSE 84; RESP 20; TEMP 36.8; O2SAT 99
[2021-11-03 06:04] LABS: Carcinoembryonic Antigen 1.4 ng/mL (0.0-3.0)
[2021-11-03] MEDS: PANTOPRAZOLE SODIUM IV 40 MG VIAL IV PUSH ×2 (08:03→17:56)
[2021-11-03] MEDS: KCL 20 MEQ/SW 100 ML 100 ML 50 MEQ IVPB (08:22)
--- NOTE | 2021-11-03 09:43 | PM.IMPN ---
Progress Note: A&P Assessment and Plan (1) Obstruction of transverse colon: Code(s): K56.609 - Unspecified intestinal obstruction, unspecified as to partial versus complete obstruction Status: Acute Assessment and Plan: Bowel obstruction present secondary to colonic mass identified in transverse colon Transverse mass noted as apple-core constricting mass of the distal transverse colon, concerning for adenocarcinoma. Patient with history of renal and bladder cancer. Appreciate general surgery consultation Continue with NG decompression Colonoscopy with stenting of colonic mass not able to be performed at this facility. Following discussions with GI and General surgery, it was determined that patient would benefit from transfer to tertiary care facility. He is accepted at [facility] under care of surgeon, Dr. Barreto. Awaiting bed availability Continue NPO diet. Patient has been started on TPN via PICC line. Supportive care. Analgesics and antiemetics available as needed. Continue NPO diet. 11/03 spoke with [facility] transfer center at patient request, still at capacity and not accepting patients for transfer (2) Mass of colon: Code(s): K63.89 - Other specified diseases of intestine Status: Acute Assessment and Plan: Plan as above (3) Urinary tract infection: Qualifiers: Hematuria presence: with hematuria Urinary tract infection type: acute cystitis Qualified Code(s): N30.01 - Acute cystitis with hematuria Code(s): N39.0 - Urinary tract infection, site not specified Status: Acute Assessment and Plan: Abnormal urinalysis from urostomy, urine culture with growth of Enterobacter, Klebsiella aerogenes Continue IV ceftriaxone #4. Planning for 7 days of antibiotic therapy, and date 11/06/2021. (4) CKD (chronic kidney disease) stage 3, GFR 30-59 ml/min: Code(s): N18.30 - Chronic kidney disease, stage 3 unspecified Status: Acute Assessment and Plan: Baseline chronic kidney disease stage 3. No prior labs available to establish baseline creatinine Renal function is stable at this time. Creatinine is 1.0 Continue with gentle IV fluids as the patient is n.p.o. (5) Gastro-esophageal reflux disease without esophagitis: Code(s): K21.9 - Gastro-esophageal reflux disease without esophagitis Status: Acute Assessment and Plan: No acute issues Continue IV Protonix bid (6) History of renal cell cancer: Code(s): Z85.528 - Personal history of other malignant neoplasm of kidney Status: Acute Assessment and Plan: From 2002, left kidney and bladder cancer status post radical nephrectomy and cystectomy. He has an ileal conduit and urostomy placement in the right lower quadrant. No history of chemotherapy or radiation. Patient underwent radical cystectomy and nephrectomy (7) Hypokalemia: Code(s): E87.6 - Hypokalemia Status: Acute Assessment and Plan: Potassium 3.2 today. Image per 20 mEq IV KCl Continue to monitor BMP Magnesium is within normal limits 11/02: Potassium is 3.3 today, will give 40 mEq IVPB with lidocaine x1, recheck tomorrow Subjective Date/time seen: 11/03/21 09:43 Interval history: Date of service: 11/03/2021 Montrell Castro is a 81-year-old male with a history of CKD, GERD, hyperlipidemia, renal and bladder cancer s/p ileal conduit urostomy who is seen in follow-up for colonic mass. He is awaiting transfer to tertiary care facility. He is overall doing okay today. He does have intermittent dull aching pain across his abdomen that he rates as about 5/10. His pain is worse if he lays on his left side. He has a sore throat from his NG tube. The Chloraseptic spray has not helped him in fact he believes made it worse. He states if he swallows he has pain. He is passing flatus and reports having a liquid brown stool this morning that filled the bottom of the com
[2021-11-03 10:47] VITALS: BMI 25.6
[2021-11-03] MEDS: MAGNESIUM HYDROXIDE SUSP 30 ML UDC FEED TUBE (11:20)
[2021-11-03] MEDS: SODIUM CHLORIDE 0.9% IV 1,000 ML 100 ML IV CONT ×2 (11:27→21:35)
--- NOTE | 2021-11-03 11:51 | PCNSR ---
On 11/03/21, the student, Marjorie Forte, provided care and completed [facility] documentation on this patient. I have reviewed the student's documentation and agree with the findings.
[2021-11-03 11:54] LABS: Glucose Point of Care 122 mg/dl (65-105)
--- NOTE | 2021-11-03 12:29 | WPDGIPROGNO ---
Progress Note: A&P Assessment and Plan (1) Obstruction of transverse colon: Code(s): K56.609 - Unspecified intestinal obstruction, unspecified as to partial versus complete obstruction Status: Acute Assessment and Plan: patient has apparent large bowel obstruction. CT scan suggest suggest carcinoma in the distal transverse colon. This may be a partial obstruction as he has had a small amount of stool and flatus. Pain patient currently awaiting transfer to tertiary care center. Suggest surgical decompression. Patient is unable to be prepped for colonoscopy at this time. Surgeons have expressed desire for stenting of this by a colonoscopy however this is not available on my service. Agree with NG tube decompression if surgical decompression not feasible then transferred tertiary care service advised. (2) History of renal cell cancer: Code(s): Z85.528 - Personal history of other malignant neoplasm of kidney Status: Acute Subjective Date/time seen: 11/03/21 12:29 Patient remains NPO with NG tube decompression. Complains modest intermittent abdominal pain. Apparently passed a small amount of stool in admits to some flatus. Review of Systems Review of Systems: Review of systems noncontributory. Exam Narrative: Physical exam reveals NG tube in place. HEENT exam reveals no icterus. Lungs are clear. Heart without murmur. Abdomen is distended with tympany bowel sounds are present. Right-sided ileal conduit is in place. Objective Data Vital Signs Vital Signs: Vital Signs - 24 hr 11/02/21 14:51 11/02/21 20:46 11/03/21 06:00 Temperature 97.4 F L 97.5 F L 98.2 F Pulse Rate 85 83 84 Respiratory Rate 18 20 20 Blood Pressure 157/69 H 173/74 H 152/73 H Pulse Oximetry 98 98 99 Oxygen Delivery 11/03/21 08:00 Temperature Pulse Rate Respiratory Rate Blood Pressure Pulse Oximetry Oxygen Delivery Room Air Intake/Output Intake/Output: Intake & Output 10/31/21 11/01/21 11/02/21 11/03/21 23:59 23:59 23:59 23:59 Intake Total 1050 3000 2050 1350 Output Total 450 1410 2250 1000 Balance 600 1590 -200 350 Meds/Results Medications: Active Medications Generic Name Dose Route Start Last Admin Trade Name Freq PRN Reason Stop Dose Admin Hydromorphone HCl 0.5 mg 10/31/21 13:54 11/01/21 17:45 Hydromorphone Hcl Inj (*Crx) 1 Mg/Ml Syr IV PUSH 0.5 mg Q4HR PRN Administration pain Sodium Chloride 1,000 mls @ 100 mls/hr 10/31/21 13:55 11/03/21 11:27 Normal Saline Iv IV CONT 100 mls/hr .Q10H FAISAL Administration Dextrose 1,000 mls @ 50 mls/hr 11/02/21 15:41 Dextrose 10% IV CONT .Q20H PRN if PN is interrupted Multivitamins 2.5 ml/ 2,005 mls @ 40 mls/hr 11/02/21 17:00 11/02/21 18:02 Multivitamins 2.5 ml/ Amino IV CONT 40 mls/hr Acids/Electrolytes/Dextrose .Q24H FAISAL Administration Protocol Fat Emulsion Intravenous 250 mls @ 20.833 mls/hr 11/02/21 17:00 11/03/21 08:00 Lipids 20% IVPB Infused Q24H FAISAL Infusion Ceftriaxone Sodium/Dextrose 1 gm in 50 mls @ 100 mls/hr 11/03/21 18:00 Rocephin 1 Gm/D5w 50 Ml IVPB Q24H FAISAL Ondansetron HCl 4 mg 10/31/21 12:52 Ondansetron Inj 4 Mg/2 Ml Vial IV PUSH Q4H PRN Nausea Pantoprazole Sodium 40 mg 10/31/21 17:00 11/03/21 08:03 Pantoprazole Sodium Iv 40 Mg Vial IV PUSH 40 mg BID FAISAL Administration Phenol 1 spray 11/02/21 20:56 11/02/21 21:55 Phenol/Sod Pheno [place] (*Bkc) MUCOUS MEM 1 spray PRN PRN Administration Sore Throat Sodium Chloride 10 ml 11/02/21 22:00 11/03/21 05:05 Central Line Flush IV PUSH 10 ml Q8HR FAISAL Administration Sodium Chloride 10 ml 11/02/21 18:00 11/02/21 18:03 Central Line Flush IV PUSH 10 ml DAILY@1800 FAISAL Administration Sodium Chloride 20 ml 11/02/21 15:22 11/03/21 05:05 Central Line Flush IV PUSH 20 ml PRN PRN Administration after blood draws Radio
[2021-11-03 14:00] VITALS: BP 152/65; PULSE 73; RESP 16; TEMP 36.8; O2SAT 98
--- NOTE | 2021-11-03 15:19 | PM.PNGS ---
Progress Note: A&P Assessment and Plan (1) Mass of colon: Code(s): K63.89 - Other specified diseases of intestine Status: Acute Assessment and Plan: CT suggests apple core lesion in the distal transverse colon concerning for adenocarcinoma, which is causing at least a partial obstruction. CEA normal. He is having some bowel function with a BM this morning. It would be ideal if he could have a colonoscopy with biopsies and possibly have a stent placed, which is not available at this facility. Would recommend transfer to a tertiary care facility where this could be done, [facility]. Continue NG tube decompression, bowel rest with TPN/Clinimix, and analgesics as needed. One dose of milk of magnesia given this morning through the NG tube. Will repeat a KUB tomorrow morning. (2) Obstruction of transverse colon: Code(s): K56.609 - Unspecified intestinal obstruction, unspecified as to partial versus complete obstruction Status: Acute Assessment and Plan: Continue NG tube, bowel rest with TPN. See plan above. (3) History of renal cell cancer: Code(s): Z85.528 - Personal history of other malignant neoplasm of kidney Status: Acute (4) History of nephrectomy: Code(s): Z90.5 - Acquired absence of kidney Status: Acute Assessment and Plan: S/p Left nephrectomy in 2000. (5) Mixed hyperlipidemia: Code(s): E78.2 - Mixed hyperlipidemia Status: Acute Plan I have discussed the patient's case and plan of care with Dr. Donovan. Subjective Subjective Date/Time Seen: 11/03/21 15:19 Patient reports: no new complaints, flatus, bowel movement and afebrile Interval history: This is a 81-year-old male with multiple medical problems including bladder cancer status post total cystectomy with ileal conduit in 2002 and radical left nephrectomy in 2000, who presented to the ER with complaints of abdominal pain and constipation. CT scan of the abdomen and pelvis showed an apple-core constricting mass of the distal transverse colon with at least a partial obstruction and other chronic findings. He was admitted and made NPO with IV fluids, NG tube decompression, and is currently on TPN. He is now waiting transfer to a tertiary care facility for surgical evaluation and possible colonic stenting. Chart reviewed. Patient seen and examined. He reports still having some mild abdominal pain with some improvement since admission. He denies any nausea. He did have a dose of milk of magnesia with clamping of his NG tube for 2 hours and has tolerated this well. He reports flatus and had a fairly good-sized loose bowel movement earlier this morning. No other complaints at this time. Review of Systems Review of Systems: All systems reviewed & are unremarkable except as noted in HPI and below Exam Const: General: comfortable and no acute distress Orientation/consciousness: patient oriented x3 GI: Inspection: other (mildly distended) GI Palp: Yes Soft to palpation, Yes Tenderness to palpation present (GI) (RUQ and RLQ), No Guarding due to palpation present (GI) and No Rebound tenderness present Auscultation: Hypoactive bowel sounds present Other: Ileal conduit with clear yellow output in bag, stoma pink and moist. Neuro: General: moves all extremities and no focal motor deficits Psych: Mental Status: mental status grossly normal Insight: Good insight present (Psych) Objective Data Vital Signs Vital Signs: Vital Signs - 24 hr 11/02/21 20:46 11/03/21 06:00 11/03/21 08:00 Temperature 97.5 F L 98.2 F Pulse Rate 83 84 Respiratory Rate 20 20 Blood Pressure 173/74 H 152/73 H Pulse Oximetry 98 99 Oxygen Delivery Room Air 11/03/21 14:00 Temperature 98.2 F Pulse Rate 73 Respiratory Rate 16 Blood Pressure 152/65 H Pulse Oximetry 98 Oxygen Delivery Intake/Output Intake/Output: Intake & Output 10/31/2111/01
[2021-11-03 15:33] LABS: Triglycerides 178 mg/dL (<150)
[2021-11-03] MEDS: FAT EMULSIONS IV 20% 250 ML 20.83 ML IVPB (17:56)
[2021-11-03] MEDS: AMINO ACIDS 5%/D15W/E-LYTES/CA 2,000 ML with MULTIVITAMINS-12 INJ VIAL 1 2.5 ML, MULTIV... 40 ML IV CONT (17:57)
[2021-11-03 22:38] VITALS: BP 140/72; PULSE 80; RESP 18; TEMP 36.6; O2SAT 94
[2021-11-03 22:46] LABS: Glucose Point of Care 130 mg/dl (65-105)
[2021-11-04 04:33] LABS: Hematocrit 30.7 % (42.0-52.0); Hemoglobin 10.3 g/dL (14.0-18.0); Mean Corpuscular HGB Conc 33.6 g/dl (32-36); Mean Corpuscular Hemoglobin 29.3 pg (26-34); Mean Corpuscular Volume 87.5 fl (80-100); Mean Platelet Volume 8.8 fl (7.4-10.4); Platelet Count Result 179 k/mm3 (150-375); Red Blood Count 3.51 M/mm3 (4.6-6.20); Red Cell Distribution Width 14.5 % (11.5-14.5); White Blood Count 6.4 K/mm3 (4.5-10.0)
[2021-11-04] MEDS: CENTRAL LINE FLUSH 10 ML IV PUSH ×3 (04:40→17:22)
[2021-11-04] MEDS: CENTRAL LINE FLUSH 20 ML IV PUSH (04:40)
[2021-11-04 04:41] VITALS: BP 138/65; PULSE 77; RESP 16; TEMP 37; O2SAT 97
[2021-11-04 04:47] LABS: Alanine Aminotransferase 11 U/L (6-50); Albumin Level 2.7 g/dL (3.5-5.1); Alkaline Phosphatase 59 U/L (38-126); Anion Gap 4 mmol/L (8-16); Aspartate Amino Transferase 21 U/L (17-59); Bilirubin,Total 0.1 mg/dL (0.2-1.3); Blood Urea Nitrogen 11 mg/dL (9-20); Calcium 7.5 mg/dL (8.4-10.2); Carbon Dioxide 22 mmol/L (22-30); Chloride 115 mmol/L (98-107); Estimated CRCL calculation 55 ml/min; Estimated Glomerular Filt Rate > 60; Glucose 123 mg/dL (65-110); Phosphorus 2.4 mg/dL (2.5-4.5); Sodium 141 mmol/L (137-145)
[2021-11-04 04:51] LABS: Potassium 2.8 mmol/L (3.4-5.0)
[2021-11-04] MEDS: KCL 40 MEQ/WATER 100 ML 100 ML 25 ML IVPB (05:17)
[2021-11-04 05:23] LABS: Glucose Point of Care 121 mg/dl (65-105)
[2021-11-04] MEDS: HYDROmorphone HCL INJ (*CRX) 1 MG/ML SYR 0.5 MG IV PUSH (06:55)
[2021-11-04] MEDS: PANTOPRAZOLE SODIUM IV 40 MG VIAL IV PUSH ×2 (09:25→17:27)
[2021-11-04] MEDS: SODIUM CHLORIDE 0.9% IV 1,000 ML 100 ML IV CONT (09:26)
[2021-11-04] MEDS: MAGNESIUM HYDROXIDE SUSP 30 ML UDC FEED TUBE (09:43)
[2021-11-04] MEDS: BISACODYL 10 MG SUPPOSITORY RECTAL (11:00)
--- NOTE | 2021-11-04 11:10 | PCNFU ---
Nutrition Follow-Up Complete: Altered GI function related to obstruction of transverse colon as evidenced by TPN. Goal: Meet 60%-80% of nutritional needs. Pt is meeting goal. Pt current nutrition is TPN. Last recorded weight is 74.2 kg. Weight is stable. Bowel Motility: + BM 11/03 Labs Reviewed: Hgb:10.3, Hct:30.7, Alb:2.7, K:2.8, Glu:123 Meds Noted: 20% lipid emulsion 250 mL at 20.833 mL/hr Q4, Clinimix E 5/15 with MVT 2.5 mL, 2,005 mL at 40 mL/hr for 24 hours, Protonix Iv, Zofran, Rocephin Skin: WNL Additional Notes: Pt remains on TPN. 20% Lipid emulsion provides pt 500 kcals. Clinimix E 5/15 with MVT provides pt 1,182 kcals, 48 grams protein. Pt is receiving 1,682 kcals total: 86% of estimated kcal needs, 50% of estimated protein needs. Pt is tolerated TPN well and no changes have been made. Continue NG tube, bowel rest, possible transfer to [facility]. Monitor TPN tolerance, weight, and labs and follow up every Wednesday and Wednesday.
[2021-11-04 11:11] LABS: Potassium 3.6 mmol/L (3.4-5.0)
[2021-11-04 11:53] LABS: Glucose Point of Care 109 mg/dl (65-105)
--- NOTE | 2021-11-04 12:35 | PCNSR ---
On 11/04/21, the student, Marjorie Forte, provided care and completed [facility] documentation on this patient. I have reviewed the student's documentation and agree with the findings.
--- NOTE | 2021-11-04 12:48 | PM.PNGS ---
Progress Note: A&P Assessment and Plan (1) Mass of colon: Code(s): K63.89 - Other specified diseases of intestine Status: Acute Assessment and Plan: CT suggests apple core lesion in the distal transverse colon concerning for adenocarcinoma, which is causing at least a partial obstruction. CEA normal. ( However occasionally this can occur in some cancers). He is having some bowel function with a BM this morning. It would be ideal if he could have a colonoscopy with biopsies and possibly have a stent placed, which is not available at this facility. Would recommend transfer to a tertiary care facility where this could be done, [facility] has accepted but waiting for bed availability. (this date I talked to Dr. Tuttle our oncologist and he gave me the name of a physician at [facility] room except him and I have talked with that physician. Trying to coordinate a more expedited transfer). Continue NG tube decompression, bowel rest with TPN/Clinimix, and analgesics as needed. One dose of milk of magnesia given this morning through the NG tube. Also continue periodic fleets enemas and Dulcolax to try to cleanse the distal colon. Will repeat a KUB tomorrow morning. (2) Obstruction of transverse colon: Code(s): K56.609 - Unspecified intestinal obstruction, unspecified as to partial versus complete obstruction Status: Acute Assessment and Plan: Continue NG tube, bowel rest with TPN. See plan above. (3) History of renal cell cancer: Code(s): Z85.528 - Personal history of other malignant neoplasm of kidney Status: Acute (4) History of nephrectomy: Code(s): Z90.5 - Acquired absence of kidney Status: Acute Assessment and Plan: S/p Left nephrectomy in 2000. (5) Mixed hyperlipidemia: Code(s): E78.2 - Mixed hyperlipidemia Status: Acute Additional Plan Possible transfer to the [facility] on [address] in [place]. Subjective Subjective Date/Time Seen: 11/04/21 12:48 Patient reports: still having pain (Occasional cramping abdominal pain), flatus and bowel movement (Small liquid bowel movement this morning without stimulation) Interval history: Patient had unremarkable night. Still feels a little bloated. Tolerated having some milk a magnesia put in the NG yesterday. Occasionally passes a little bit of flatus but not much. Review of Systems Review of Systems: All systems reviewed & are unremarkable except as noted in HPI and below Gastrointestinal: Gastrointestinal: Reports as per HPI, Denies melena, Reports bloating and Denies vomiting Exam Const: General: cooperative, comfortable, alert and awake Orientation/consciousness: patient oriented x3 HENMT: Head: normal to inspection Mouth: Yes moist mucous membranes Eyes: Sclera: sclerae normal Pupils: Equal, round and reactive pupils present Neck: Neck: normal visual inspection and no JVD Chest: Chest palpation & inspection: normal inspection of the chest Resp: Effort & Inspection: normal respiratory effort Auscultation: clear to auscultation bilaterally Cardio: Jugular venous distension: no JVD Rate: regular rate GI: Inspection: distended and scar (Vertical midline without hernia, lower paramedian without hernia) Auscultation: normal bowel sounds (Occasionally tinkling also) Other: Whigham visible ileal conduit ostomy right lower quadrant Neuro: General: patient oriented x3 Cranial nerves: Yes Equal, round and reactive pupils present Objective Data Vital Signs Vital Signs: Vital Signs - 24 hr 11/03/21 14:00 11/03/21 22:38 11/04/21 04:41 Temperature 36.8 C 36.6 C 37.0 C Pulse Rate 73 80 77 Respiratory Rate 16 18 16 Blood Pressure 152/65 H 140/72 138/65 Pulse Oximetry 98 94 97 Oxygen Delivery 11/04/21 09:25 Temperature Pulse Rate Respiratory Rate Blood Pressure Pulse Oximetry Oxygen Delivery Room Air Intake/Output In
[2021-11-04 14:00] VITALS: BP 140/62; PULSE 84; RESP 16; TEMP 37; O2SAT 98
--- NOTE | 2021-11-04 14:32 | P.PNIM_ITS ---
Progress Note: A&P Assessment and Plan (1) Obstruction of transverse colon: Code(s): K56.609 - Unspecified intestinal obstruction, unspecified as to partial versus complete obstruction Status: Acute Assessment and Plan: Bowel obstruction present secondary to colonic mass identified in transverse colon * Transverse mass noted as apple-core constricting mass of the distal transverse colon, concerning for adenocarcinoma. Patient with history of renal and bladder cancer. CEA is within normal limits * Appreciate general surgery consultation * Continue with NG decompression * Colonoscopy with stenting of colonic mass not able to be performed at this facility. Following discussions with GI and General surgery, it was determined that patient would benefit from transfer to tertiary care facility. * [facility] care of surgeon, Dr. Barreto. Awaiting bed availability. patient remains on wait list * Patient is NPO. Continue TPN via PICC line. * Supportive care. Analgesics and antiemetics available as needed. Continue NPO diet. * Abdominal x-ray today with persistent mild gaseous distension of the proximal colon * 11/04 spoke with [facility] transfer center, still at capacity and not accepting patients for transfer * Dr. Donovan spoke with colorectal surgeon, Dr. Torres at [facility]. Patient accepted for transfer. I am awaiting call from hospitalist at [facility]. Hopeful transfer today. (2) Mass of colon: Code(s): K63.89 - Other specified diseases of intestine Status: Acute Assessment and Plan: Plan as above (3) Urinary tract infection: Qualifiers: Hematuria presence: with hematuria Urinary tract infection type: acute cystitis Qualified Code(s): N30.01 - Acute cystitis with hematuria Code(s): N39.0 - Urinary tract infection, site not specified Status: Acute Assessment and Plan: Abnormal urinalysis from urostomy, urine culture with growth of Enterobacter, Klebsiella aerogenes * Continue IV ceftriaxone #5. Planning for 7 days of antibiotic therapy, end date 11/06/2021. (4) CKD (chronic kidney disease) stage 3, GFR 30-59 ml/min: Code(s): N18.30 - Chronic kidney disease, stage 3 unspecified Status: Acute Assessment and Plan: Baseline chronic kidney disease stage 3. No prior labs available to establish baseline creatinine * Renal function is stable at this time. Creatinine is 0.9 * Continue with gentle IV fluids as the patient is n.p.o. (5) Gastro-esophageal reflux disease without esophagitis: Code(s): K21.9 - Gastro-esophageal reflux disease without esophagitis Status: Acute Assessment and Plan: No acute issues * Continue IV Protonix bid (6) History of renal cell cancer: Code(s): Z85.528 - Personal history of other malignant neoplasm of kidney Status: Acute Assessment and Plan: From 2002, left kidney and bladder cancer status post radical nephrectomy and cystectomy. * He has an ileal conduit and urostomy placement in the right lower quadrant. * No history of chemotherapy or radiation. Patient underwent radical cystectomy and nephrectomy (7) Hypokalemia: Code(s): E87.6 - Hypokalemia Status: Acute Assessment and Plan: Potassium 2.8 today. * received 40 mEq IV KCl * repeat potassium improved to 3.6 * continue to monitor BMP Subjective Date/time seen: 11/04/21 14:32 Interval history: Date of service: 11/04/2021 Montrell Castro
--- NOTE | 2021-11-04 14:32 | PM.IMPN ---
Progress Note: A&P Assessment and Plan (1) Obstruction of transverse colon: Code(s): K56.609 - Unspecified intestinal obstruction, unspecified as to partial versus complete obstruction Status: Acute Assessment and Plan: Bowel obstruction present secondary to colonic mass identified in transverse colon Transverse mass noted as apple-core constricting mass of the distal transverse colon, concerning for adenocarcinoma. Patient with history of renal and bladder cancer. CEA is within normal limits Appreciate general surgery consultation Continue with NG decompression Colonoscopy with stenting of colonic mass not able to be performed at this facility. Following discussions with GI and General surgery, it was determined that patient would benefit from transfer to tertiary care facility. He has been accepted to [facility] under care of surgeon, Dr. Barreto. Awaiting bed availability. patient remains on wait list Patient is NPO. Continue TPN via PICC line. Supportive care. Analgesics and antiemetics available as needed. Continue NPO diet. Abdominal x-ray today with persistent mild gaseous distension of the proximal colon 11/04 spoke with [facility] transfer center, still at capacity and not accepting patients for transfer Dr. Donovan spoke with colorectal surgeon, Dr. Torres at [facility]. Patient accepted for transfer. I am awaiting call from hospitalist at [facility]. Hopeful transfer today. (2) Mass of colon: Code(s): K63.89 - Other specified diseases of intestine Status: Acute Assessment and Plan: Plan as above (3) Urinary tract infection: Qualifiers: Hematuria presence: with hematuria Urinary tract infection type: acute cystitis Qualified Code(s): N30.01 - Acute cystitis with hematuria Code(s): N39.0 - Urinary tract infection, site not specified Status: Acute Assessment and Plan: Abnormal urinalysis from urostomy, urine culture with growth of Enterobacter, Klebsiella aerogenes Continue IV ceftriaxone #5. Planning for 7 days of antibiotic therapy, end date 11/06/2021. (4) CKD (chronic kidney disease) stage 3, GFR 30-59 ml/min: Code(s): N18.30 - Chronic kidney disease, stage 3 unspecified Status: Acute Assessment and Plan: Baseline chronic kidney disease stage 3. No prior labs available to establish baseline creatinine Renal function is stable at this time. Creatinine is 0.9 Continue with gentle IV fluids as the patient is n.p.o. (5) Gastro-esophageal reflux disease without esophagitis: Code(s): K21.9 - Gastro-esophageal reflux disease without esophagitis Status: Acute Assessment and Plan: No acute issues Continue IV Protonix bid (6) History of renal cell cancer: Code(s): Z85.528 - Personal history of other malignant neoplasm of kidney Status: Acute Assessment and Plan: From 2002, left kidney and bladder cancer status post radical nephrectomy and cystectomy. He has an ileal conduit and urostomy placement in the right lower quadrant. No history of chemotherapy or radiation. Patient underwent radical cystectomy and nephrectomy (7) Hypokalemia: Code(s): E87.6 - Hypokalemia Status: Acute Assessment and Plan: Potassium 2.8 today. received 40 mEq IV KCl repeat potassium improved to 3.6 continue to monitor BMP Subjective Date/time seen: 11/04/21 14:32 Interval history: Date of service: 11/04/2021 Montrell Castro is a 81-year-old male with a history of CKD, GERD, hyperlipidemia, renal and bladder cancer s/p ileal conduit urostomy who is seen in follow-up for colonic mass. He is awaiting transfer to tertiary care facility. he feels about the same today. He complains of sore throat secondary to the NG tube which she rates as 12/10 in pain. He feels his voice is hoarse from this. He endorses abdominal fullness. He passed a liquid stool this morning. He den
[2021-11-04] MEDS: AMINO ACIDS 5%/D15W/E-LYTES/CA 2,000 ML with MULTIVITAMINS-12 INJ VIAL 1 2.5 ML, MULTIV... 40 ML IV CONT (17:19)
[2021-11-04] MEDS: FAT EMULSIONS IV 20% 250 ML 20.83 ML IVPB (17:20)
[2021-11-04 19:02] LABS: Glucose Point of Care 122 mg/dl (65-105)
--- NOTE | 2021-11-04 19:10 | PC.NURSE ---
Patient transfered to [facility]. Report called to Brianna ARRINGTON at [facility]. Patient transported via [facility] @[id number]
--- NOTE | 2021-11-05 06:51 | PM.TDS ---
Transfer Discharge Sum: Prov Provider Date of admission: 10/31/21 14:02 Primary care physician: Bashir Yao MD Admitting clinician: Mervin Vora MD Consults: 10/31/21 Consult to Physician Routine Comment: Spoke w/Dr. Smyth @0727. (,) Consulting Provider: Fernando Smyth Reason for consultation: Consider enemas - colonoscopy with possible stenting of trans col lesion Has provider been notified: Yes 10/31/21 13:20 Consult to Physician Routine Comment: Spoke w/Dr. Smyth @0727 on 11/01/21 (,) Consulting Provider: Fernando Smyth Reason for consultation: Transverse colon obstruction due to mass Has provider been notified: Yes 11/02/21 15:43 Consult to Dietitian Routine Reason for Consult:: TPN DS: Admitting Diagnosis Discharge Date 11/04/21 Admitting Diagnosis Colonic obstruction DS: Discharge Diagnosis Discharge Diagnosis (1) Obstruction of transverse colon: Code(s): K56.609 - Unspecified intestinal obstruction, unspecified as to partial versus complete obstruction Status: Acute Assessment and Plan: Bowel obstruction present secondary to colonic mass identified in transverse colon Transverse mass noted as apple-core constricting mass of the distal transverse colon, concerning for adenocarcinoma. Patient with history of renal and bladder cancer. CEA is within normal limits He was seen in consultation by General Surgery Colonoscopy with stenting of colonic mass not able to be performed at this facility. Following discussions with GI and General surgery, it was determined that patient would benefit from transfer to tertiary care facility. Transferred to [facility] on 11/04/2021. Spoke with Jasmin Queen NP to provide updates. Dr. Donovan spoke with colorectal surgeon Dr. Torres. Continue NG decompression with TPN via PICC line. Supportive care provided including analgesics and antiemetics as needed. (2) Mass of colon: Code(s): K63.89 - Other specified diseases of intestine Status: Acute Assessment and Plan: Plan as above (3) Urinary tract infection: Qualifiers: Hematuria presence: with hematuria Urinary tract infection type: acute cystitis Qualified Code(s): N30.01 - Acute cystitis with hematuria Code(s): N39.0 - Urinary tract infection, site not specified Status: Acute Assessment and Plan: Abnormal urinalysis from urostomy, urine culture with growth of Enterobacter, Klebsiella aerogenes Received 5 doses of IV ceftriaxone. Plan to complete 7 days of antibiotic therapy, end date 11/06/2021. (4) CKD (chronic kidney disease) stage 3, GFR 30-59 ml/min: Code(s): N18.30 - Chronic kidney disease, stage 3 unspecified Status: Acute Assessment and Plan: Baseline chronic kidney disease stage 3. No prior labs available to establish baseline creatinine Renal function remained stable (5) Gastro-esophageal reflux disease without esophagitis: Code(s): K21.9 - Gastro-esophageal reflux disease without esophagitis Status: Acute Assessment and Plan: No acute issues IV Protonix bid (6) History of renal cell cancer: Code(s): Z85.528 - Personal history of other malignant neoplasm of kidney Status: Acute Assessment and Plan: From 2002, left kidney and bladder cancer status post radical nephrectomy and cystectomy. He has an ileal conduit and urostomy placement in the right lower quadrant. No history of chemotherapy or radiation. (7) Hypokalemia: Code(s): E87.6 - Hypokalemia Status: Acute Assessment and Plan: Potassium was monitored and supplemented as needed. Potassium stable at time of transfer, 3.6 continue to monitor BMP Transfer Discharge Sum: Med Medications Active and Home Medications: Home Medications aspirin 81 mg capsule 81 mg PO DAILY 10/31/21 [History Confirmed
== END 2021-11-04 19:10 | disposition short-term general hospital (02) | DRG 389 ==
LOC: ANHED 13:34 → ANH2MED 13:56
PROVIDERS: Physician Assistant; Student in an Organized Health Care Education/Training Program; Surgery; Admitting Provider Chiropractor; Emergency Provider Emergency Medicine; PCP Family Medicine; Visit Provider Internal Medicine
DX: K56.699 Other intestinal obstruction unspecified as to partial versus complete obstruction (principal); N30.01 Acute cystitis with hematuria; N99.521 Infection of incontinent external stoma of urinary tract; B96.89 Other specified bacterial agents as the cause of diseases classified elsewhere; K63.89 Other specified diseases of intestine; K21.9 Gastro-esophageal reflux disease without esophagitis; E78.2 Mixed hyperlipidemia; N18.30 Chronic kidney disease, stage 3 unspecified; E87.6 Hypokalemia; Z79.82 Long term (current) use of aspirin; Z85.51 Personal history of malignant neoplasm of bladder; Z85.528 Personal history of other malignant neoplasm of kidney; Z90.5 Acquired absence of kidney; Z90.6 Acquired absence of other parts of urinary tract
CPT/HCPCS: 36415; 36569; 71045; 74018; 74019; 74177; 80048; 80053; 81001; 82378; 82948; 83605; 83690; 83735; 84100; 84132; 84134; 84466; 84478; 85025; 85027; 85610; 85730; 87077; 87086; 87186; 96361; 96365; 96375; 99285; A9270; C1751; C9113; G0378; J0696; J1170; J2270; J2405; J3480; J7030; J7040; Q9967

== ENCOUNTER 2022-08-05 18:43 | Emergency (ER) | payer MEDICARE, SELFPAY ==
[2022-08-05] VITALS (30 sets, daily range): BP systolic 103–187; BP diastolic 65–96; PULSE 80–91; RESP 16–26; TEMP 36.6; O2SAT 96–100
--- NOTE | ~2022-08-05 | CT_ITS ---
EXAMINATION: CT abdomen pelvis w con DATE: 08/05/2022 19:48 INDICATION: Constipation. Generalized abdominal pain. History of cancer. TECHNIQUE: Computed tomography (CT) of the abdomen and pelvis was performed with 100 cc Omnipaque 350 intravenous contrast. The dose-length product was 237.73 mGy-cm. Automated exposure control and iter ative reconstruction technique were employed. COMPARISON: CT dated 10/31/2021 FINDINGS: There is bibasilar dependent atelectasis. Heart size normal. No significant pleural or angely cardial effusion. There are gallstones. There are several subcentimeter hypodensities in the liver, m ost likely benign. The spleen, pancreas, adrenal glands are unremarkable. There are small subcentimet er hypodensities of the right kidney, most likely benign cysts. The left kidney is severely atrophic. There is atherosclerosis of the aorta without aneurysm. There is fecal impaction of the right colon. There is a stent in the distal transverse colon. There is thickening of the colon at the level of th e stent, likely corresponding to known malignancy. Moderate lumbar spondylosis. No focal lytic or miles stic lesions. There is an ileostomy. No lymphadenopathy. IMPRESSION: 1. Fecal impaction of the right distal transverse colon which extends to the level of the colonic [place] nt. There is thickening of the colon at the level of the stent, likely corresponding to the area of k nown malignancy. 2: Cholelithiasis. Reviewed, dictated and finalized at [facility]. IMPRESSION: 1. Fecal impaction of the right distal transverse colon which extends to the le aniceto of the colonic stent. There is thickening of the colon at the level of the stent, likely corresponding to the area of known malignancy. 2: Cholelithiasis.
--- NOTE | 2022-08-05 19:07 | ED.ABDPAIN ---
HPI - Abdominal Pain General Chief Complaint: Abdominal Pain <VALENTINO Godwin Last Filed: 08/06/22 03:08> Stated Complaint: constipation <VALENTINO Godwin Last Filed: 08/06/22 03:08> Time Seen by Provider: 08/05/22 18:57 <VALENTINO Godwin Last Filed: 08/06/22 03:08> History of Present Illness HPI narrative: Patient is an 82-year-old male with a history of metastatic colon cancer, status post bladder and kidney resection, ileal conduit for urine which drains into a bag on the right lower abdomen, here for evaluation of generalized abdominal pain and constipation x5 days. Patient states that he passed a small stool this morning but still feels full. He was seen at [facility] about a month ago for similar issue, had enema that resolved his symptoms. He denies any blood in his stool, nausea, vomiting, fevers or chills. He reports a diffuse abdominal pain. He has been using his daily laxatives without relief of his symptoms. He was diagnosed with colon cancer in October of last year, was admitted here initially but eventually had to be transferred to [facility] for stenting in the transverse colon and colonoscopy with biopsies. He does follow with Dr. Tuttle and is receiving palliative chemotherapy. <VALENTINO Godwin Last Filed: 08/06/22 03:08> Related Data Home Medications: Home Medications Medication Instructions Recorded Confirmed No Home Medications 06/24/22 07/01/22 <VALENTINO Godwin Last Filed: 08/06/22 03:08> Allergies/Adverse Reactions: Allergies Allergy/AdvReac Type Severity Reaction Status Date / Time No Known Allergies Allergy Mild Verified 08/05/22 19:03 <VALENTINO Godwin Last Filed: 08/06/22 03:08> Review of Systems Review of Systems: Gen: Denies fevers or chills Eyes: Denies eye pain or visual change ENT: Denies congestion Respiratory: Denies shortness of breath or cough CV: Denies chest pain or palpitations GI: reports abdominal pain and constipation denies burning, urgency, frequency or hematuria Musculoskeletal: Denies back pain or muscle pain Neuro: Denies numbness, tingling, weakness or focal weakness Skin: Denies rash Except as documented, all other systems reviewed and negative <Lolly Wilkins PA-C - Last Filed: 08/06/22 03:08> COUNT INCLUDES THE [facility] Past Medical History Medical History: Medical History Atherosclerosis of aorta CKD (chronic kidney disease) stage 3, GFR 30-59 ml/min Colon cancer metastasized to liver Essential (primary) hypertension Gastro-esophageal reflux disease without esophagitis Hypokalemia Insomnia, unspecified Mixed hyperlipidemia Obstruction of transverse colon Personal history of colonic polyps Personal history of malignant neoplasm of bladder Personal history of other malignant neoplasm of kidney Pure hyperglyceridemia Urinary tract infection <Lolly Wilkins PA-C - Last Filed: 08/06/22 03:08> Surgical History Surgical History: Surgical History History of nephrectomy History of total cystectomy History of urostomy <Lolly Wilkins PA-C - Last Filed: 08/06/22 03:08> Family History Family History: Family History Sibling Patient's sister is in good health, Onset Age: 72 Patient's brother is in good health, Onset Age: 63 Father Family history of Alzheimer's disease, Onset Age: 82 Patient's father is Mother Patient's mother is <Lolly Wilkins PA-C - Last Filed: 08/06/22 03:08> Social History Social History: Social History (Updated 05/08/22 @ 09:44 by Ibis Hassan MA) Smoking status: Former smoker Smoking end date: 04/19/95 Alcohol intake: current Drinks per week: 7 Substa
[2022-08-05 19:12] LABS: Basophils Absolute Auto 0.1 K/mm3 (0.0-0.1); Basophils Percent Auto 0.7 % (0.2-1.2); Eosinophils Absolute Auto 0.3 K/mm3 (0-0.3); Eosinophils Percent Auto 3.6 % (0-4.4); Hematocrit 41.9 % (42.0-52.0); Hemoglobin 13.5 g/dL (14.0-18.0); Immature Granulocyte Absolute 0.01 K/mm3 (0.00-0.031); Immature Granulocyte Percent A 0.1 % (0-0.5); Lymphocytes Absolute Auto 2.04 K/mm3 (0.9-3.2); Lymphocytes Percent Auto 29.1 % (18.3-44.2); Mean Corpuscular HGB Conc 32.2 g/dl (32-36); Mean Corpuscular Hemoglobin 31.5 pg (26-34); Mean Corpuscular Volume 97.9 fl (80-100); Mean Platelet Volume 8.4 fl (7.4-10.4); Monocytes Absolute Auto 0.6 K/mm3 (0.1-0.6); Monocytes Percent Auto 9.1 % (2.6-8.5); Neutrophils Percent Auto 57.4 % (45.5-73.1); Platelet Count Result 222 k/mm3 (150-375); Red Blood Count 4.28 M/mm3 (4.6-6.20); Red Cell Distribution Width 13.3 % (11.5-14.5)
[2022-08-05 19:22] LABS: Alanine Aminotransferase 19 U/L (6-50); Albumin Level 4.3 g/dL (3.5-5.1); Alkaline Phosphatase 97 U/L (38-126); Anion Gap 7 mmol/L (8-16); Aspartate Amino Transferase 24 U/L (17-59); Bilirubin,Total 0.4 mg/dL (0.2-1.3); Blood Urea Nitrogen 16 mg/dL (9-20); Calcium 9.5 mg/dL (8.4-10.2); Carbon Dioxide 30 mmol/L (22-30); Chloride 103 mmol/L (98-107); Estimated CRCL calculation 39 ml/min; Estimated Glomerular Filt Rate > 60; Glucose 145 mg/dL (65-110); Lipase 205 U/L (23-300); Potassium 3.8 mmol/L (3.4-5.0); Sodium 140 mmol/L (137-145)
[2022-08-06] VITALS (48 sets, daily range): BP systolic 141–176; BP diastolic 74–92; PULSE 60–100; RESP 14–18; O2SAT 93–100
[2022-08-06] MEDS: MAGNESIUM HYDROXIDE SUSP 30 ML UDC PO (00:43)
[2022-08-06] MEDS: polyethylene glycoL 3350 17 GM POWD.PACK PO (00:43)
[2022-08-06] MEDS: MAG HYDROX/AL HYDROX/SIMETH 30 ML UDC PO (01:31)
[2022-08-06] MEDS: SODIUM CHLORIDE 0.9% IV 1,000 ML 999 ML IV CONT (02:20)
--- NOTE | 2022-08-06 03:08 | PC.NURSE ---
Spoke to Maria A at [facility]. Their system went down at 0200 (downtime) and isn't expected to be back up until 0430. The plan is to once system is up, get patient accepted to [facility] (on [address]). There are no beds available at this time,looking at possibly tomorrow sometime.
[2022-08-06] MEDS: MORPHINE SULFATE (*CRX) 4 MG/ML INJ IV PUSH (03:21)
[2022-08-06] MEDS: SODIUM CHLORIDE 0.9% IV 1,000 ML 150 ML IV CONT (03:21)
--- NOTE | 2022-08-06 04:57 | PC.NURSE ---
Spoke to Maria A [facility]. Patient information has been sent to hospitalist. Waiting to hear back.
[2022-08-06] MEDS: MORPHINE SULFATE (*CRX) 2 MG/ML INJ IV PUSH (10:18)
[2022-08-06] MEDS: ONDANSETRON INJ 4 MG/2 ML VIAL IV PUSH ×2 (13:32→18:22)
== END 2022-08-06 18:36 | disposition short-term general hospital (02) ==
PROVIDERS: Emergency Medicine; Emergency Provider Physician Assistant; PCP Family Medicine
DX: K56.41 Fecal impaction (principal); C18.9 Malignant neoplasm of colon, unspecified; I70.0 Atherosclerosis of aorta; N18.30 Chronic kidney disease, stage 3 unspecified; I12.9 Hypertensive chronic kidney disease with stage 1 through stage 4 chronic kidney disease, or unspecified chronic kidney disease; E78.2 Mixed hyperlipidemia; E78.1 Pure hyperglyceridemia; K21.9 Gastro-esophageal reflux disease without esophagitis; Z93.2 Ileostomy status; Z86.010 Personal history of colon polyps; Z85.51 Personal history of malignant neoplasm of bladder; Z85.528 Personal history of other malignant neoplasm of kidney; Z87.440 Personal history of urinary (tract) infections; Z87.891 Personal history of nicotine dependence; Z90.5 Acquired absence of kidney; Z90.6 Acquired absence of other parts of urinary tract; Z79.899 Other long term (current) drug therapy; K80.20 Calculus of gallbladder without cholecystitis without obstruction
CPT/HCPCS: 36415; 74177; 80053; 83605; 83690; 85025; 96361; 96374; 96375; 96376; 99284; A9270; J2270; J2405; J7030; Q9967

== ENCOUNTER 2022-09-19 08:27 | Outpatient (CLI) | payer MEDICARE, SELFPAY ==
--- NOTE | 2022-09-19 08:45 | ECHO_ITS ---
Patient Info Name: Montrell Castro Age: 82 years : 1940 Gender: Male Ht: 67 in Wt: 124 lbs BSA: 1.62 m2 HR: 72 bpm BP: 126 / 66 mmHg Heart Rhythm: Atrial Fibrillation Technical Quality: Fair Exam Date: 09/19/2022 8:58 AM Exam Location: [facility]monary Patient Status: Outpatient Admit Date: 09/19/2022 Staff Ordering Physician: Mervin Franz MD Dairy Worker: Roby Lai RDCS Attending Provider: Mervin Franz MD Referring Physician: Maria M CORTEZ; Exam Type: CA echo doppler color flow Study Info Indications - A-FIB Complete two-dimensional, color flow and Doppler transthoracic echocardiogram is performed. Summary 1. Complete two-dimensional, color flow and Doppler transthoracic echocardiogram is performed. 2. Left ventricular chamber dimension is normal. 3. Left ventricular systolic function is normal, estimated at 50-55%. 4. Right ventricular systolic function is normal. 5. There is trace mitral valve regurgitation. 6. There is trace tricuspid valve regurgitation. 7. There is trivial pericardial effusion. 8. The aortic root size at the sinus of Valsalva is dilated. Left Ventricle Left ventricular chamber dimension is normal. Left ventricular systolic function is normal, estimated at 50-55%. There is no increased left ventricular wall thickness. Right Ventricle Right ventricular chamber dimension is normal. Right ventricular systolic function is normal. Left Atria Left atrial chamber dimension is normal. Right Atria Right atrial chamber dimension is normal. Atrial Septum Intact interatrial septum visualized by color flow imaging. Aortic Valve The aortic valve is trileaflet. There is no aortic valve stenosis. There is no aortic valve regurgitation. There is mild aortic valve calcification. Pulmonic Valve The pulmonic valve is not well visualized. Mitral Valve There is trace mitral valve regurgitation. The mitral valve annulus is mildly calcified. Tricuspid Valve There is trace tricuspid valve regurgitation. Pericardium/Pleural There is trivial pericardial effusion. Inferior Vena Cava Normal inferior vena cava with >50% collapse upon inspiration consistent with normal right atrial pressure, 3 mmHg. Aorta The aortic root size at the sinus of Valsalva is dilated. Left Ventricular Outflow Tract Name Value Normal LVOT 2D LVOT Diameter 3.1 cm LVOT Doppler LVOT Peak Gradient 4 mmHg LVOT Mean Gradient 2 mmHg LVOT VTI 21 cm LVOT VTI/AV VTI Ratio 0.8 LVOT Stroke Volume 158 ml Pulmonic Valve Name Value Normal RVOT Doppler RVOT Peak Gradient 1 mmHg PV Doppler PV Peak Gradient 2 mmHg Mitral Valve
== END 2022-09-19 08:28 | disposition home or self-care (01) ==
LOC: ANHCARD 08:28
PROVIDERS: PCP Family Medicine; Visit Provider Specialist
DX: I48.91 Unspecified atrial fibrillation (principal)
CPT/HCPCS: 93306

== ENCOUNTER 2022-12-14 09:28 | Outpatient (CLI) | payer MEDICARE, SELFPAY ==
--- NOTE | ~2022-12-14 | CT_ITS ---
CT of the Abdomen and Pelvis: Indication: Colon cancer Technique: 2.5 mm axial scans were obtained through the abdomen and pelvis following intravenous adm inistration of 100 cc of Omnipaque 350. Dose reduction technique was used on this scan by utilizing a utomated exposure control and iterative reconstruction technique. The dose-length product (DLP) was 2 24.53 mGy-cm. COMPARISON: 08/05/2022 Findings: Scans through the lung bases demonstrate bibasilar scarring. Stable subcentimeter hypodense hepatic lesions noted. The spleen, pancreas, adrenals and right kidney are within normal limits. Patient is status post left nephrectomy. Small calcified gallstones are pr esent. No evidence of aortic aneurysm. No lymphadenopathy. There is a colonic stent involving the majority of the transverse colon, with probable wall thickenin g throughout this region. No roseann bowel obstruction evident. No abscess or free air evident. Images through the pelvis were performed. Patient appears to be status post cystectomy, with ileal co nduit present. No ascites. Impression: Wall thickening of the transverse colon with colonic stent present, consistent with history of colon cancer. No evidence for bowel obstruction at this time. Stable subcentimeter hypodense hepatic lesions, indeterminate. Status post cystectomy with ileal conduit in place. Cholelithiasis. Reviewed, dictated and finalized at [facility]. Impression: Wall thickening of the transverse colon with colonic stent present, consistent with history of colon cancer. No evidence for bowel obstruction at this time. Stable subcentimeter hypodense hepatic lesions, indeterminate. Status post cystectomy with ileal conduit in place. Cholelithiasis.
== END 2022-12-14 09:29 | disposition home or self-care (01) ==
PROVIDERS: PCP Family Medicine; Visit Provider Internal Medicine Hematology & Oncology
DX: C18.9 Malignant neoplasm of colon, unspecified (principal); K80.20 Calculus of gallbladder without cholecystitis without obstruction
CPT/HCPCS: 74177; Q9967

== ENCOUNTER 2023-02-10 08:25 | Outpatient (CLI) | payer MEDICARE, SELFPAY ==
--- NOTE | ~2023-02-10 | CT_ITS ---
CT of the Abdomen and Pelvis: Indication: Colon cancer Technique: 2.5 mm axial scans were obtained through the abdomen and pelvis following intravenous adm inistration of 100 cc of Omnipaque 350. Dose reduction technique was used on this scan by utilizing a utomated exposure control and iterative reconstruction technique. The dose-length product (DLP) was 1 93.08 mGy-cm. COMPARISON: 12/14/2022 Findings: Scans through the lung bases demonstrated stable mild bibasilar scarring and/or chronic in terstitial change. Stable subcentimeter hypodense hepatic lesions are noted. The spleen, pancreas, adrenals and right ki dney are within normal limits. Small calcified gallstones are present. Patient is status post left ne phrectomy. No evidence of aortic aneurysm. No lymphadenopathy. There is metallic stent in the distal half of the transverse colon, with probable wall thickening and suspected tumor infiltration through the stent. Large bowel proximal to the stent is fluid distended , with cecum and ascending colon measuring up to 8 cm in diameter. Images through the pelvis were performed. She is status post apparent cystectomy with ileal conduit i n place. No ascites. Impression: Distal transverse colonic stent with underlying wall thickening and possible tumor infiltration of th e stent. There is prominent fluid distention of the large bowel proximal to the stent, which could in dicate element of bowel obstruction related to tumor infiltration into the stent. Correlate clinicall y. Status post cystectomy with ileal conduit in place. Cholelithiasis. Status post left nephrectomy. Reviewed, dictated and finalized at [facility]. Impression: Distal transverse colonic stent with underlying wall thickening and possible tu mor infiltration of the stent. There is prominent fluid distention of the large bowel proximal to the stent, which could indicate element of bowel obstruction related to tumor infiltration into the stent. Correlate clinically. Status post cystectomy with ileal conduit in place. Cholelithiasis. Status post left nephrectomy.
== END 2023-02-10 08:26 | disposition home or self-care (01) ==
PROVIDERS: PCP Family Medicine; Visit Provider Internal Medicine Hematology & Oncology
DX: C18.9 Malignant neoplasm of colon, unspecified (principal); K80.20 Calculus of gallbladder without cholecystitis without obstruction; Z97.8 Presence of other specified devices; Z90.6 Acquired absence of other parts of urinary tract; Z90.5 Acquired absence of kidney
CPT/HCPCS: 74177; Q9967

== ENCOUNTER 2023-05-10 08:14 | Outpatient (CLI) | payer MEDICARE, SELFPAY ==
[2023-05-10 08:39] LABS: Estimated Glomerular Filt Rate 14
== END 2023-05-10 08:15 | disposition home or self-care (01) ==
PROVIDERS: PCP Family Medicine; Visit Provider Internal Medicine Hematology & Oncology
DX: C18.9 Malignant neoplasm of colon, unspecified (principal)
CPT/HCPCS: 99199

== ENCOUNTER 2023-05-18 08:24 | Outpatient (CLI) | payer MEDICARE, SELFPAY ==
--- NOTE | ~2023-05-18 | CT_ITS ---
EXAMINATION: CT abdomen pelvis wo con DATE: 05/18/2023 08:54 INDICATION: Malignant neoplasm of colon; restaging TECHNIQUE: Computed tomography (CT) of the abdomen and pelvis was performed without intravenous contr ast. Automated exposure control and iterative reconstruction technique were employed. Exam dose: 201 .12 mGy-cm total exam DLP. COMPARISON: 02/10/2023 CT abdomen pelvis FINDINGS: Bilateral lower lobe stable scarring. Normal heart size. No pericardial or pleural effusion. Cholelithiasis. No gallbladder wall thickening or pericholecystic fluid collection no intrahepatic or extrahepatic bile duct or pancreatic duct dilatation. No hepatic, splenic, pancreatic or adrenal space-occupying mass lesion is evident. Status post left nephrectomy. No right renal mass lesion or hydronephrosis is noted. Ileal conduit. Status post cystectomy. There is atherosclerotic calcification but normal caliber of the abdominal aorta. No intraperitoneal or retroperitoneal or pelvic mass lesion or adenopathy or ascites is detected. There is a transverse colon stent which contains a prominent amount of fecal material; no evidence of bowel obstruction. There are numerous diverticula of the sigmoid and to a lesser extent descending colon. Small bilateral fat-containing inguinal hernias. Slight fat-containing umbilical hernia. Degenerative spurring of the thoracic and lumbar spine. No suspicious osteolytic or osteoblastic lesi ons are noted. IMPRESSION: Transverse colon stent; no bowel obstruction is evident Status post cystectomy and ileal conduit Status post left nephrectomy Cholelithiasis Diverticulosis of the left colon; no CT evidence of diverticulitis Reviewed, dictated and finalized at [facility]. Reviewed, dictated and finalized at [facility]. LER
== END 2023-05-18 08:25 | disposition home or self-care (01) ==
PROVIDERS: PCP Family Medicine; Visit Provider Internal Medicine Hematology & Oncology
DX: C18.9 Malignant neoplasm of colon, unspecified (principal); Z98.0 Intestinal bypass and anastomosis status; Z90.49 Acquired absence of other specified parts of digestive tract; Z90.5 Acquired absence of kidney; K80.20 Calculus of gallbladder without cholecystitis without obstruction; K57.90 Diverticulosis of intestine, part unspecified, without perforation or abscess without bleeding
CPT/HCPCS: 74176

== ENCOUNTER 2023-09-01 09:07 | Outpatient (CLI) | payer MEDICARE, SELFPAY ==
--- NOTE | ~2023-09-01 | CT_ITS ---
CT of the Abdomen and Pelvis: Indication: Anemia due to chemotherapy Technique: 2.5 mm axial scans were obtained through the abdomen and pelvis following intravenous adm inistration of 100 cc of Omnipaque 350. Dose reduction technique was used on this scan by utilizing a utomated exposure control and iterative reconstruction technique. The dose-length product (DLP) was 2 15.61 mGy-cm. COMPARISON: 05/18/2023 Findings: Scans through the lung bases demonstrate stable probable bibasilar scarring. There are 2 hypodense masses in the upper right hepatic lobe, fairly new from prior exam, measuring 1 .6 cm in diameter each (axial images 19, 22). These are compatible with metastatic lesions. Small yamileth cified gallstones are present. Stable subtle nodular appearance of the left gland. The spleen, pancre as, right adrenal gland, and right kidney are within normal limits. Status post left nephrectomy. The re are atherosclerotic calcifications of the aorta. No lymphadenopathy. Stable stent in the mid to distal transverse colon with probable surrounding wall thickening. No yamileth k bowel obstruction evident though there is suggestion of luminal narrowing and wall thickening just proximal to the stent in the transverse colon, which appears similar to prior exam. Images through the pelvis were performed. Status post cystectomy with ileal conduit in place. No pelv ic mass evident. No ascites. Impression: 2 new hepatic lesions, suspicious for metastatic disease, as detailed above. Stable transverse colonic stent with surrounding wall thickening as well as probable wall thickening and luminal narrowing just proximal to the stent. No roseann bowel obstruction. Appearance is stable fr om prior exam. Status post left nephrectomy and cystectomy, with ileal conduit in place. Cholelithiasis. Reviewed, dictated and finalized at [facility]. Impression: 2 new hepatic lesions, suspicious for metastatic disease, as detailed above. Stable transverse colonic stent with surrounding wall thickening as well as pro bable wall thickening and luminal narrowing just proximal to the stent. No yamileth k bowel obstruction. Appearance is stable from prior exam. Status post left nephrectomy and cystectomy, with ileal conduit in place. Cholelithiasis.
[2023-09-01 09:22] LABS: Estimated Glomerular Filt Rate 49
== END 2023-09-01 09:08 | disposition home or self-care (01) ==
LOC: ANHIMG 09:09
PROVIDERS: PCP Family Medicine; Visit Provider Internal Medicine Hematology & Oncology
DX: D64.81 Anemia due to antineoplastic chemotherapy (principal); T45.1X5A Adverse effect of antineoplastic and immunosuppressive drugs, initial encounter; R16.0 Hepatomegaly, not elsewhere classified; K80.20 Calculus of gallbladder without cholecystitis without obstruction; Z90.5 Acquired absence of kidney; Z90.6 Acquired absence of other parts of urinary tract; Z93.6 Other artificial openings of urinary tract status; Z96.89 Presence of other specified functional implants
CPT/HCPCS: 74177; Q9967